=== PATIENT | male | born 1990 | race Hispanic/Latino ===

== ENCOUNTER 2016-12-27 19:25 | Emergency (ER) | payer MEDICAID ==
[2016-12-27 20:11] VITALS: BP 136/84
[2016-12-27] MEDS ORDERED: TYLENOL PO ONE (20:11)
[2016-12-27] MEDS ORDERED: TYLENOL ONE (20:11)
== END 2016-12-27 23:35 | disposition left against medical advice (07) ==
LOC: ED 19:25
DX: R22.0 Localized swelling, mass and lump, head (principal); K08.89 Other specified disorders of teeth and supporting structures; R50.9 Fever, unspecified; J45.909 Unspecified asthma, uncomplicated; E11.9 Type 2 diabetes mellitus without complications; F31.9 Bipolar disorder, unspecified; F20.9 Schizophrenia, unspecified; Z53.21 Procedure and treatment not carried out due to patient leaving prior to being seen by health care provider

== ENCOUNTER 2016-12-30 11:53 | Emergency (ER) | payer MEDICAID ==
[2016-12-30 12:25] VITALS: BP 128/84
--- NOTE | 2016-12-30 13:09 | Emergency Department Report ---
HPI - General Chief Complaint: Dental/Oral Time Seen by Provider: 12/30/16 13:06 - HPI HPI: Patient here reports left facial swelling in that been going on and off for a while. He said that he went to [facility] but he has Medicaid and they would not take because these over 21. Patient said he has toothache with abscess that is being going on for 1 week now. He reports swelling to his cheek. Denies any fever or chills. He said the pain is coming from his gum and it comes and goes at 2 out of 10 presently. Denies any sore throat or drooling. Denies any cough or difficulty breathing. She has a history of schizophrenia, bipolar and behavioral disorder, diabetes, asthma. ED Past Medical Hx - Past Medical History Previous Medical History?: Yes Hx Diabetes: Yes Hx Psychiatric Treatment: Yes (schizophrenia, bipolar) Hx Asthma: Yes Additional medical history: behavioral disorder - Surgical History Past Surgical History?: Yes Hx Cholecystectomy: Yes - Family History Family history: no significant - Social History Smoking Status: Never Smoker Substance Use Type: None - Medications Home Medications: Home Medications Medication Instructions Recorded Confirmed Last Taken Type Albuterol Sulfate [Ventolin HFA] 2 puff IH Q4H PRN #2 hfa.aer.ad 11/26/13 Unknown Rx predniSONE [Deltasone] 20 mg PO TID #15 tab 11/26/13 Unknown Rx Clindamycin [Clindamycin CAP] 300 mg PO Q8H #30 cap 12/30/16 Unknown Rx Ibuprofen [Motrin 800 MG tab] 800 mg PO Q8HR PRN #21 tablet 12/30/16 Unknown Rx ED Review of Systems ROS: Stated complaint: MOUTH INFECTION Other details as noted in HPI Comment: All other systems reviewed and negative Constitutional: denies: chills, fever Eyes: denies: eye pain, vision change ENT: dental pain. denies: ear pain, throat pain, hearing loss, epistaxis, congestion Respiratory: no symptoms reported Cardiovascular: denies: chest pain, palpitations, edema, syncope Gastrointestinal: denies: abdominal pain, nausea, vomiting Musculoskeletal: denies: back pain, joint swelling, arthralgia, myalgia Skin: denies: rash Neurological: denies: headache, weakness, numbness, paresthesias, confusion, abnormal gait, vertigo Physical Exam - Physical Exam Vital Signs: Vital Signs 12/30/16 12:23 Temperature 97.9 F Pulse Rate 86 Respiratory 16 Rate Blood Pressure 128/84 O2 Sat by Pulse 98 Oximetry General: This is a 26-year-old male well-nourished well-developed in no acute distress. Physical Exam: Head: [Normocephalic atraumatic Mouth: Moist, no pharyngeal exudate or erythema. Uvula is midline and oral airway is patent. gingival inflammation de with dental tenderness to left lower and upper tooth.#15 16,17,18 and 19. positive facial left swelling . No peritonsillar abscesses. Multiple missing teeth. Multiple dental caries. Mild cellulitis around tooth #15,16 and 17. No induration or fluctuance noted Neck: Supple, no C-spine tenderness, no tracheal deviation. Nontender to palpate. no adenopathy Ears: Bilateral TMs Pear[place] carbone .bilateral EAC without any redness swelling or drainage Eyes: Bilateral pupils equal and reactive to light, bilateral EOM intact. Bilateral sclera and conjunctiva without injection. Normal accommodation Nose: Mucosa moist, NL mucosa. maxillary and frontal sinus non-tender to palpate. Lungs:Clear to auscultate bilaterally no rhonchi wheezes or rales. Normal work of breathing extremity; No CCE. +2 pulses. No neurovascular compromise Cardiovascular: S1-S2, regular rate rhythm. No murmurs. Skin: clean Dry and intact no rash no lesions Psych: Normal mood and behavior ED Course Vital Signs 12/30/16 12:23 Temperature 97.9 F Pulse Rate 86 Respiratory 16 Rate Blood Pressure 128/84 O2 Sat by Pulse 98 Oximetry - Reevaluation(s) Reevaluation #1: 12/30/16 13:18 Patient did not want any pain medication in the emergency room. ED Medical Decision Making - Medical Decision Making ED course: Patient with oral cellulitis, gingivitis and dental pain. I discussed the patient diagnosis and treatment plan and need to follow-up with a dentist for correction of underlying problems. He voices understanding and patient discharged home in stable condition with prescription for Motrin, clindamycin and to follow up with [facility] dental clinic. Critical care attestation.: If time is entered above; I have spent that time in minutes in the direct care of this critically ill patient, excluding procedure time. ED Disposition Clinical Impression: Mouth pain, Gingivitis, Dental caries, Oral cellulitis Disposition: DC-01 TO HOME OR SELFCARE Is pt being admited?: No Does the pt Need Aspirin: No Condition: Stable Instructions: Cellulitis (ED), Dental Caries (ED), Toothache (ED), Gingivitis ( ED) Additional Instructions: Please rinse your mouth 2 times a day with Listerine mouthwash Follow up with [facility] dental clinic. Call number in discharge instruction paperwork to get appointment. Take antibiotic as prescribed. Prescriptions: Clindamycin [Clindamycin CAP] 300 mg PO Q8H #30 cap Ibuprofen [Motrin 800 MG tab] 800 mg PO Q8HR PRN #21 tablet PRN Reason: Toothache Referrals: [facility] [Outside] - 3-5 Days Forms: Accompanied Note, Work/School Release Form(ED)
== END 2016-12-30 13:43 | disposition home or self-care (01) ==
LOC: ED 11:53
DX: K12.2 Cellulitis and abscess of mouth (principal); K02.9 Dental caries, unspecified; K05.10 Chronic gingivitis, plaque induced; E11.9 Type 2 diabetes mellitus without complications; F31.9 Bipolar disorder, unspecified; F20.9 Schizophrenia, unspecified; J45.909 Unspecified asthma, uncomplicated; Z90.49 Acquired absence of other specified parts of digestive tract
CPT/HCPCS: 99281

== ENCOUNTER 2019-04-06 13:03 | Emergency (ER) | payer MEDICAID ==
[2019-04-06 13:46] VITALS: BP 121/80
[2019-04-06 15:05] LABS: Basophils # (Auto) 0.1 K/mm3 (0.0-0.1); Basophils % (Auto) 0.6 % (0.0-1.8); Eosinophils # (Auto) 0.3 K/mm3 (0.0-0.4); Eosinophils % (Auto) 2.9 % (0.0-4.3); Hematocrit 46.8 % (35.5-45.6); Hemoglobin 16.2 gm/dl (11.8-15.2); Lymphocytes # (Auto) 1.6 K/mm3 (1.2-5.4); Lymphocytes % (Auto) 16.4 % (13.4-35.0); Mean Corpuscular HGB Conc 35 % (32-34); Mean Corpuscular Volume 85 fl (84-94); Monocytes # (Auto) 0.5 K/mm3 (0.0-0.8); Monocytes % (Auto) 5.4 % (0.0-7.3); Platelet Count 301 K/mm3 (140-440); Red Blood Count 5.52 M/mm3 (3.65-5.03); Red Cell Distribution Width 13.8 % (13.2-15.2)
[2019-04-06 15:15] LABS: Alanine Aminotransferase 86 units/L (7-56); Albumin 4.6 g/dL (3.9-5); BUN/Creatinine Ratio 23; Blood Urea Nitrogen 25 mg/dL (9-20); Calcium 9.5 mg/dL (8.4-10.2); Hemolysis Index 12
[2019-04-06 16:13] LABS: Bilirubin,Urine NEG (Negative); Blood,Urine NEG (Negative); Color,Urine Amber (Yellow); Mucus,Urine 1+ /HPF; Protein,Urine <15 mg/dL mg/dL (Negative)
[2019-04-06] MEDS ORDERED: CATAPRES PO ONE (16:14)
--- NOTE | 2019-04-06 16:15 | Emergency Department Report ---
ED Syncope HPI - General Chief Complaint: Syncope Stated Complaint: HBP/FAINTED Time Seen by Provider: 04/06/19 14:47 Source: patient Exam Limitations: no limitations - History of Present Illness Initial Comments: This is 28-year-old male with past medical history behavior disorder and bipolar disorder who presents to ED status post syncopal episode that happened earlier today while he was in his room. Patient states he was sitting on the bed when he had a syncopal episode. Patient states his head did not hit the floor patient denies loss of consciousness. Patient states he thinks his couple of seconds. Patient denies any chest pain or dizziness or any symptoms prior to syncopal episode. Patient states that he's been out of these medications. She denies fevers/chills/nausea and vomited Timing/Prior Episodes: single episode today Precipitating Factors: Positive: none Context: sitting Loss of Consciousness: no loss of consciousness Current Symptoms: back to normal. denies: blurred vision, chest pain, injury, lightheadedness - Related Data Allergies/Adverse Reactions: Allergies No Known Allergies Allergy (Verified 04/06/19 13:10) Home Medications: Ambulatory Orders Albuterol Sulfate [Ventolin HFA] 2 puff IH Q4H PRN #2 hfa.aer.ad 11/26/13 predniSONE [Deltasone] 20 mg PO TID #15 tab 11/26/13 Clindamycin [Clindamycin CAP] 300 mg PO Q8H #30 cap 12/30/16 Ibuprofen [Motrin 800 MG tab] 800 mg PO Q8HR PRN #21 tablet 12/30/16 cloZAPine (NF) 100 mg PO QHS #20 tablet 04/06/19 diphenhydrAMINE [Benadryl CAP] 25 mg PO QHS #20 capsule 04/06/19 ED Review of Systems ROS: Stated complaint: HBP/FAINTED Other details as noted in HPI Comment: All other systems reviewed and negative ED Past Medical Hx - Past Medical History Previous Medical History?: Yes Hx Diabetes: Yes Hx Psychiatric Treatment: Yes (schizophrenia, bipolar) Hx Asthma: Yes Additional medical history: behavioral disorder - Surgical History Past Surgical History?: Yes Hx Cholecystectomy: Yes - Social History Smoking Status: Never Smoker Substance Use Type: None - Medications Home Medications: Home Medications Medication Instructions Recorded Confirmed Last Taken Type Albuterol Sulfate [Ventolin HFA] 2 puff IH Q4H PRN #2 hfa.aer.ad 11/26/13 Unknown Rx predniSONE [Deltasone] 20 mg PO TID #15 tab 11/26/13 Unknown Rx Clindamycin [Clindamycin CAP] 300 mg PO Q8H #30 cap 12/30/16 Unknown Rx Ibuprofen [Motrin 800 MG tab] 800 mg PO Q8HR PRN #21 tablet 12/30/16 Unknown Rx cloZAPine (NF) 100 mg PO QHS #20 tablet 04/06/19 Unknown Rx diphenhydrAMINE [Benadryl CAP] 25 mg PO QHS #20 capsule 04/06/19 Unknown Rx ED Physical Exam - General Limitations: No Limitations General appearance: alert, in no apparent distress - Head Head exam: Present: atraumatic, normocephalic - Eye Eye exam: Present: normal appearance - ENT ENT exam: Present: mucous membranes moist - Neck Neck exam: Present: normal inspection - Respiratory Respiratory exam: Present: normal lung sounds bilaterally. Absent: respiratory distress - Cardiovascular Cardiovascular Exam: Present: regular rate, normal rhythm. Absent: systolic murmur, diastolic murmur, rubs, gallop - GI/Abdominal GI/Abdominal exam: Present: soft, normal bowel sounds - Rectal Rectal exam: Present: deferred - Extremities Exam Extremities exam: Present: normal inspection - Back Exam Back exam: Present: normal inspection - Neurological Exam Neurological exam: Present: alert, oriented X3, CN II-XII intact, normal gait - Expanded Neurological Exam Expanded Patient oriented to: Present: person, place, time Speech: Present: fluid speech Cerebellar function: Finger to Nose: Normal Best Eye Response (Erving): (4) open spontaneously Best Motor Response (Erving): (6) obeys commands Best Verbal Response (Elías): (5) oriented Erving Total: 15 - Psychiatric Psychiatric exam: Present: normal affect, normal mood - Skin Skin exam: Present: warm, dry, intact, normal color. Absent: rash ED Course Vital Signs 04/06/19 13:45 Temperature 97.9 F Pulse Rate 86 Respiratory 16 Rate Blood Pressure 121/80 O2 Sat by Pulse 94 Oximetry ED Medical Decision Making - Lab Data Result diagrams: 04/06/19 14:31 04/06/19 14:31 Laboratory Last Values WBC 10.0 K/mm3 (4.5-11.0) 04/06/19 14:31 RBC 5.52 M/mm3 (3.65-5.03) H 04/06/19 14:31 Hgb 16.2 gm/dl (11.8-15.2) H 04/06/19 14:31 Hct 46.8 % (35.5-45.6) H 04/06/19 14:31 MCV 85 fl (84-94) 04/06/19 14:31 MCH 29 pg (28-32) 04/06/19 14:31 MCHC 35 % (32-34) H 04/06/19 14:31 RDW 13.8 % (13.2-15.2) 04/06/19 14:31 Plt Count 301 K/mm3 (140-440) 04/06/19 14:31 Lymph % (Auto) 16.4 % (13.4-35.0) 04/06/19 14:31 [place] % (Auto) 5.4 % (0.0-7.3) 04/06/19 14:31 Eos % (Auto) 2.9 % (0.0-4.3) 04/06/19 14:31 Baso % (Auto) 0.6 % (0.0-1.8) 04/06/19 14:31 Lymph # 1.6 K/mm3 (1.2-5.4) 04/06/19 14:31 [place] # 0.5 K/mm3 (0.0-0.8) 04/06/19 14:31 Eos # 0.3 K/mm3 (0.0-0.4) 04/06/19 14:31 Baso # 0.1 K/mm3 (0.0-0.1) 04/06/19 14:31 Seg Neutrophils % 74.7 % (40.0-70.0) H 04/06/19 14:31 Seg Neutrophils # 7.5 K/mm3 (1.8-7.7) 04/06/19 14:31 Sodium 139 mmol/L (137-145) 04/06/19 14:31 Potassium 3.8 mmol/L (3.6-5.0) 04/06/19 14:31 Chloride 103.9 mmol/L (98-107) 04/06/19 14:31 Carbon Dioxide 19 mmol/L (22-30) L 04/06/19 14:31 Anion Gap 20 mmol/L 04/06/19 14:31 BUN 25 mg/dL (9-20) H 04/06/19 14:31 Creatinine 1.1 mg/dL (0.8-1.5) 04/06/19 14:31 Estimated GFR > 60 ml/min 04/06/19 14:31 BUN/Creatinine Ratio 23 % 04/06/19 14:31 Glucose 95 mg/dL (75-100) 04/06/19 14:31 Calcium 9.5 mg/dL (8.4-10.2) 04/06/19 14:31 Total Bilirubin 0.90 mg/dL (0.1-1.2) 04/06/19 14:31 AST 44 units/L (5-40) H 04/06/19 14:31 ALT 86 units/L (7-56) H 04/06/19 14:31 Alkaline Phosphatase 93 units/L (35-129) 04/06/19 14:31 Total Protein 8.4 g/dL (6.3-8.2) H 04/06/19 14:31 Albumin 4.6 g/dL (3.9-5) 04/06/19 14:31 Albumin/Globulin Ratio 1.2 % 04/06/19 14:31 Urine Bilirubin Neg (Negative) 04/06/19 Unknown Urine RBC (Auto) 2.0 /HPF (0.0-6.0) 04/06/19 Unknown U Epithel Cells (Auto) < 1.0 /HPF (0-13.0) 04/06/19 Unknown Temp Pulse Resp BP Pulse Ox 97.9 F 86 16 121/80 94 04/06/19 13:45 04/06/19 13:45 04/06/19 13:45 04/06/19 13:45 04/06/19 13:45 - EKG Data EKG shows normal: sinus rhythm Rate: normal - EKG Data Interpretation: no acute changes, normal EKG - Medical Decision Making 28-year-old male presents with syncopal episode. ED course: Patient is in no acute or respiratory distress. Vital signs stable. Patient reports feeling better and is in no pain. CBC: Within normal limits CMP:within normal limits Urinalysis: Negative EKG: See above, normal sinus rhythm Discussed with patient lab findings -see above Patient is a low risk due to [place] syncopy rule. Patient has no history of congestive heart failure, hematocrit greater than 30, EKG within normal limits, denies shortness of breath and systolic pressure greater than 90. Orthostatic blood pressure: Normal Patient states she understands and will comply to follow-up. Primary care physician, mental health physician referral given Discussed with patient if she has some nonspecific episodes return to ED. Critical care attestation.: If time is entered above; I have spent that time in minutes in the direct care of this critically ill patient, excluding procedure time. ED Disposition Clinical Impression: Episode of syncope Disposition: DC- TO HOME OR SELFCARE Is pt being admited?: No Does the pt Need Aspirin: No Condition: Stable Instructions: Syncope (ED) Additional Instructions: Make sure to follow up with the primary care physician as discussed. Take all your medications as you've been prescribed. If you have any worsening symptoms or develop new symptoms please return to ED immediately. Prescriptions: diphenhydrAMINE [Benadryl CAP] 25 mg PO QHS #20 capsule cloZAPine (NF) 100 mg PO QHS #20 tablet Referrals: PRIMARY CARE, [Primary Care Provider] - 3-5 Days [facility] [Outside] - 3-5 Days [facility] [Outside] - 3-5 Days [facility] [Outside] - 3-5 Days Forms: Accompanied Note, Work/School Release Form(ED) Time of Disposition: 17:25
== END 2019-04-06 17:34 | disposition home or self-care (01) ==
LOC: ED 13:03
DX: R55 Syncope and collapse (principal); E11.9 Type 2 diabetes mellitus without complications; F31.9 Bipolar disorder, unspecified; F20.9 Schizophrenia, unspecified; J45.909 Unspecified asthma, uncomplicated; Z90.49 Acquired absence of other specified parts of digestive tract; Z79.899 Other long term (current) drug therapy
CPT/HCPCS: 36415; 80053; 81001; 85025; 93005; 93010

== ENCOUNTER 2019-05-06 05:25 | Emergency (ER) | payer MEDICAID ==
[2019-05-06] MEDS ORDERED: ONDANSETRON 4 MG/2 ML INJ IV ONE (05:38)
[2019-05-06] MEDS ORDERED: KETOROLAC 30 MG/1 ML INJ IV ONE (05:38)
[2019-05-06] MEDS ORDERED: FAMOTIDINE 20 MG/2 ML INJ IV ONE (05:38)
--- NOTE | 2019-05-06 05:44 | Emergency Department Report ---
<RALPH SIMPSON - Last Filed: 05/06/19 07:10> ED Abdominal Pain HPI - General Chief Complaint: Abdominal Pain Stated Complaint: ABD PAIN Source: patient Mode of arrival: Ambulatory Limitations: No Limitations - History of Present Illness Initial Comments: Patient is a 28-year-old white male with a history of asthma, [id number] diabetes, hypertension, paranoid schizophrenia and bipolar disorder who presents to the ED with [place] of acute onset persistent diffuse intermittent abdominal pain with nausea for the last 3 weeks. Patient states t hat his symptoms got worse about 6 hours ago such that he was unable to sleep because of worsening diffuse abdominal pain. Patient also states that he has not had any bowel movement in 5 days despite eating. Patient denies vomiting, fever, chills, cough, chest pain, shortness of breath, soft, headache, dizziness, diarrhea, dysuria, urinary frequency and urgency, testicular pain, hematuria, hematochezia or hematemesis. MD Complaint: abdominal pain, other (Possibly constipated; Nausea) -: Sudden, week(s) (3) Location: diffuse Radiation: none Migration to: no migration Severity scale (0 -10): 5 Quality: cramping, aching, sharp Consistency: constant Improves With: nothing Worsens With: nothing Context: other (possibly constipated, no bowel movement in 5 days) Associated Symptoms: denies other symptoms, nausea, constipation. denies: vomiting, diarrhea, fever, dysuria, hematemesis, hematochezia, hematuria, syncope, other - Related Data Previous Rx's Medication Instructions Recorded Last Taken Type Albuterol Sulfate [Ventolin HFA] 2 puff IH Q4H PRN #2 hfa.aer.ad 11/26/13 Unknown Rx predniSONE [Deltasone] 20 mg PO TID #15 tab 11/26/13 Unknown Rx Clindamycin [Clindamycin CAP] 300 mg PO Q8H #30 cap 12/30/16 Unknown Rx Ibuprofen [Motrin 800 MG tab] 800 mg PO Q8HR PRN #21 tablet 12/30/16 Unknown Rx cloZAPine (NF) 100 mg PO QHS #20 tablet 04/06/19 Unknown Rx diphenhydrAMINE [Benadryl CAP] 25 mg PO QHS #20 capsule 04/06/19 Unknown Rx Ondansetron [Zofran ODT TAB] 8 mg PO Q12HR #20 tab.rapdis 05/06/19 Unknown Rx Polyethylene Glycol 3350 [Miralax] 17 gm PO DAILY 7 Days #1 bottle 05/06/19 Unknown Rx Allergies Allergy/AdvReac Type Severity Reaction Status Date / Time No Known Allergies Allergy Verified 04/06/19 13:10 ED Review of Systems Constitutional: malaise, weakness. denies: chills, fever Eyes: denies: eye pain, eye discharge, vision change ENT: denies: ear pain, throat pain Respiratory: denies: cough, shortness of breath, wheezing Cardiovascular: denies: chest pain, palpitations Endocrine: no symptoms reported Gastrointestinal: abdominal pain, nausea, constipation. denies: diarrhea, hematemesis, hematochezia Genitourinary: denies: urgency, dysuria Musculoskeletal: denies: back pain, joint swelling, arthralgia Skin: denies: rash, lesions Neurological: denies: headache, weakness, paresthesias Psychiatric: denies: anxiety, depression Hematological/Lymphatic: denies: easy bleeding, easy bruising ED Past Medical Hx - Past Medical History Previous Medical History?: Yes Hx Hypertension: Yes Hx Diabetes: Yes Hx Psychiatric Treatment: Yes (schizophrenia, bipolar) Hx Asthma: Yes Additional medical history: behavioral disorder - Surgical History Past Surgical History?: Yes Hx Cholecystectomy: Yes - Social History Smoking Status: Never Smoker Substance Use Type: None - Medications Home Medications: Home Medications Medication Instructions Recorded Confirmed Last Taken Type Albuterol Sulfate [Ventolin HFA] 2 puff IH Q4H PRN #2 hfa.aer.ad 11/26/13 Unkno wn Rx predniSONE [Deltasone] 20 mg PO TID #15 tab 11/26/13 Unknown Rx Clindamycin [Clindamycin CAP] 300 mg PO Q8H #30 cap 12/30/16 Unknown Rx Ibuprofen [Motrin 800 MG tab] 800 mg PO Q8HR PRN #21 tablet 12/30/16 Unknown Rx cloZAPine (NF) 100 mg PO QHS #20 tablet 04/06/19 Unknown Rx diphenhydrAMINE [Benadryl CAP] 25 mg PO QHS #20 capsule 04/06/19 Unknown Rx Ondansetron [Zofran ODT TAB] 8 mg PO Q12HR #20 tab.rapdis 05/06/19 Unknown Rx Polyethylene Glycol 3350 [Miralax] 17 gm PO DAILY 7 Days #1 bottle 05/06/19 Unknown Rx ED Physical Exam - General Limitations: No Limitations General appearance: alert, in no apparent distress - Head Head exam: Present: atraumatic, normocephalic, normal inspection - Eye Eye exam: Present: normal appearance, PERRL, EOMI Pupils: Present: normal accommodation - ENT ENT exam: Present: normal exam, normal orophraynx, mucous membranes moist, TM's normal bilaterally, normal external ear exam - Neck Neck exam: Present: normal inspection, full ROM - Respiratory Respiratory exam: Present: normal lung sounds bilaterally. Absent: respiratory distress, wheezes, rales, rhonchi, chest wall tenderness, accessory muscle use, decreased breath sounds - Cardiovascular Cardiovascular Exam: Present: regular rate, normal rhythm, normal heart sounds. Absent: systolic murmur, diastolic murmur, rubs, gallop - GI/Abdominal GI/Abdominal exam: Present: soft, tenderness (Palpable diffuse abdominal tenderness, no guarding or rebound), normal bowel sounds. Absent: guarding, rebound, hyperactive bowel sounds, hypoactive bowel sounds, organomegaly - Extremities Exam Extremities exam: Present: normal inspection, full ROM, normal capillary refill - Back Exam Back exam: Present: normal inspection, full ROM. Absent: tenderness, CVA tenderness (L), muscle spasm, paraspinal tenderness, vertebral tenderness - Neurological Exam Neurological exam: Present: alert, oriented X3, CN II-XII intact, normal gait, reflexes normal - Psychiatric Psychiatric exam: Present: normal affect, normal mood, anxious - Skin Skin exam: Present: warm, dry, intact, normal color. Absent: rash ED Medical Decision Making - Lab Data Result diagrams: 05/06/19 05:40 05/06/19 05:40 - Medical Decision Making Patient patient care transferred to Ms Misti Tejeda PA-C at shift change at 0700 hours. Ms Servin shall review the imaging report and appropriately disposition the patient. - Differential Diagnosis Abdominal pain; Constipation, SBO; UTI; GERD ED Disposition Clinical Impression: Constipation, Enteritis, IBS (irritable bowel syndrome) Disposition: DC- TO HOME OR SELFCARE Condition: Stable Instructions: High Fiber Diet (ED), Constipation (ED) Additional Instructions: Make sure to follow up with the primary care physician as discussed. Take all your medications as you've been prescribed. If you have any worsening symptoms or develop new symptoms please return to ED immediately. Prescriptions: Polyethylene Glycol 3350 [Miralax] 17 gm PO DAILY 7 Days #1 bottle Ondansetron [Zofran ODT TAB] 8 mg PO Q12HR #20 tab.rapdis Referrals: PRIMARY CARE, [Primary Care Provider] - 3-5 Days [facility] [Provider Group] - 3-5 Days [facility] [Provider Group] - 3-5 Days Forms: Accompanied Note, Work/School Release Form(ED) <MISTI TEJEDA - Last Filed: 05/06/19 09:27> ED Review of Systems ROS: Stated complaint: ABD PAIN Other details as noted in HPI ED Course Vital Signs 05/06/19 05:30 Temperature 97.7 F Pulse Rate 89 Respiratory 18 Rate Blood Pressure 133/97 O2 Sat by Pulse 97 Oximetry ED Medical Decision Making - Lab Data Result diagrams: 05/06/19 05:40 05/06/19 05:40 Laboratory Results - last 24 hr 05/06/19 05/06/19 05/06/19 05:35 05:40 05:40 WBC 7.1 RBC 4.59 Hgb 13.8 Hct 39.2 MCV 86 MCH 30 MCHC 35 H RDW 14.5 Plt Count 310 Lymph % (Auto) 28.1 [place] % (Auto) 7.9 H Eos % (Auto) 5.7 H Baso % (Auto) 0.8 Lymph # 2.0 [place] # 0.6 Eos # 0.4 Baso # 0.1 Seg Neutrophils % 57.5 Seg Neutrophils # 4.1 Sodium 145 Potassium 3.6 Chloride 104.8 Carbon Dioxide 27 Anion Gap 17 BUN 16 Creatinine 1.1 Estimated GFR > 60 BUN/Creatinine Ratio 15 Glucose 111 H Calcium 9.4 Total Bilirubin 0.40 AST 33 ALT 70 H Alkaline Phosphatase 78 Total Protein 7.2 Albumin 4.2 Albumin/Globulin Ratio 1.4 Lipase 56 Urine Color Gisselle Urine Turbidity Clear Urine pH 5.0 Ur Specific [place] 1.028 Urine Protein 30 mg/dl Urine Glucose (UA) Neg Urine Ketones Neg Urine Blood Neg Urine Nitrite Neg Urine Bilirubin Neg Urine Urobilinogen 2.0 Ur Leukocyte Esterase Neg Urine WBC (Auto) 4.0 Urine RBC (Auto) 3.0 U Epithel Cells (Auto) < 1.0 Urine Bacteria (Auto) 1+ Urine Mucus 3+ - Radiology Data Radiology results: report reviewed, image reviewed CT abdomen pelvis w con INDICATION / CLINICAL INFORMATION: Patient complains of epigastric abdominal pain Omnipaque 300 / 100ml's was used for this exam.. TECHNIQUE: Axial CT imaging of abdomen and pelvis was obtained with IV contrast. Coronal and sagittal reformatted imaging obtained and reviewed. All CT scans at this location are performed using CT dose reduction for ALARA by means of automated exposure control. COMPARISON: Prior CT abdomen/pelvis, 09/11/2011 FINDINGS: CT abdomen with contrast shows normal appearance of the liver, spleen, pancreas, kidneys, and adrenal glands. Prior cholecystectomy. There is marked elevation of the left hemidiaphragm. CT pelvis with contrast shows no evidence for a pelvic mass or free fluid. No focal inflammatory change. A normal appendix is present. There are several nondilated fluid-filled loops of small bowel throughout the pelvis in a pattern that could represent enteritis. This will need to be correlated with clinical presentation and symptoms. Visualized lung bases are grossly clear. Again, there is marked elevation of the left hemidiaphragm. No significant skeletal abnormality IMPRESSION: 1. Multiple nondilated fluid filled small bowel loops are present. This could represent enteritis. Please correlate clinically. 2. No other acute finding within the abdomen or pelvis. 3. Marked elevation of the left hemidiaphragm. On the prior CT of 09/11/2011, the left hemidiaphragm was slightly elevated. The degree of elevation on today's exam represents a significant interval change. Signer Name: Yarely Stout MD Signed: 05/06/2019 7:33 AM Workstation Name: [id number] Transcribed By: Dictated By: Yarely Stout MD Electronically Authenticated By: Yarely Stout MD Signed Date/Time: 05/06/19 0733 - Medical Decision Making This is a 28-year-old male who presents with constipation and some abdominal pain. CBC, CMP, urinalysis all within normal limits no abnormal findings CT scan of the abdomen itself that shows no acute abdomen. Upon reevaluation patient is nontender in the abdomen in all quadrants. Patient states he had a bowel movement 30 minutes ago in the emergency department. Patient states he was a normal bowel movement. Patient is resting comfortably ED bed. He is in no acute distress. Discussed with patient referrals given for a fishing vessel captain to follow-up. Patient is not exhibiting any signs of shortness of breath or chest pain She will be sent tomorrow MiraLAX for 7 days then Zofran as needed for nausea There is no active vomiting or diarrhea episode in the ED. Patient was asking for food stating he was hungry and was able to tolerate fluid prior to discharge Critical care attestation.: If time is entered above; I have spent that time in minutes in the direct care of this critically ill patient, excluding procedure time. ED Disposition Is pt being admited?: No Does the pt Need Aspirin: No Time of Disposition: 09:24
[2019-05-06] MEDS: MAGNESIUM CITRATE 300 ML ORAL LIQD PO ONE ×2 (06:05→06:41)
[2019-05-06 06:08] LABS: Basophils # (Auto) 0.1 K/mm3 (0.0-0.1); Basophils % (Auto) 0.8 % (0.0-1.8); Eosinophils # (Auto) 0.4 K/mm3 (0.0-0.4); Eosinophils % (Auto) 5.7 % (0.0-4.3); Hematocrit 39.2 % (35.5-45.6); Hemoglobin 13.8 gm/dl (11.8-15.2); Lymphocytes % (Auto) 28.1 % (13.4-35.0); Mean Corpuscular HGB Conc 35 % (32-34); Mean Corpuscular Volume 86 fl (84-94); Monocytes # (Auto) 0.6 K/mm3 (0.0-0.8); Monocytes % (Auto) 7.9 % (0.0-7.3); Platelet Count 310 K/mm3 (140-440); Red Blood Count 4.59 M/mm3 (3.65-5.03); Red Cell Distribution Width 14.5 % (13.2-15.2)
[2019-05-06 06:20] LABS: Bacteria,Urine 1+ /HPF (Negative); Bilirubin,Urine NEG (Negative); Blood,Urine NEG (Negative); Color,Urine Amber (Yellow); Mucus,Urine 3+ /HPF
[2019-05-06] MEDS ORDERED: POLYETHYLENE GLYCOL 3350 17 GM POWDER PO ONE (06:23)
[2019-05-06 06:31] LABS: Alanine Aminotransferase 70 units/L (7-56); Albumin 4.2 g/dL (3.9-5); BUN/Creatinine Ratio 15; Blood Urea Nitrogen 16 mg/dL (9-20); Calcium 9.4 mg/dL (8.4-10.2); Hemolysis Index 17
--- NOTE | 2019-05-06 07:38 | Cat Scan Report ---
CT abdomen pelvis w con INDICATION / CLINICAL INFORMATION: Patient complains of epigastric abdominal pain Omnipaque 300 / 100ml's was used for this exam.. TECHNIQUE: Axial CT imaging of abdomen and pelvis was obtained with IV contrast. Coronal and sagittal reformatte d imaging obtained and reviewed. All CT scans at this location are performed using CT dose reduction for ALARA by means of automated exposure control. COMPARISON: Prior CT abdomen/pelvis, 09/11/2011 FINDINGS: CT abdomen with contrast shows normal appearance of the liver, spleen, pancreas, kidneys, and adrenal glands. Prior cholecystectomy. There is marked elevation of the left hemidiaphragm. CT pelvis with contrast shows no evidence for a pelvic mass or free fluid. No focal inflammatory [place] ge. A normal appendix is present. There are several nondilated fluid-filled loops of small bowel thro ughout the pelvis in a pattern that could represent enteritis. This will need to be correlated with c linical presentation and symptoms. Visualized lung bases are grossly clear. Again, there is marked elevation of the left hemidiaphragm. No significant skeletal abnormality IMPRESSION: 1. Multiple nondilated fluid filled small bowel loops are present. This could represent enteritis. Pl ease correlate clinically. 2. No other acute finding within the abdomen or pelvis. 3. Marked elevation of the left hemidiaphragm. On the prior CT of 09/11/2011, the left hemidiaphragm was slightly elevated. The degree of elevation on today's exam represents a significant interval luigi nge. Signer Name: Yarely Stout MD Signed: 05/06/2019 7:33 AM Workstation Name: [id number]
[2019-05-06 09:46] VITALS: BP 130/91
== END 2019-05-06 09:44 | disposition home or self-care (01) ==
LOC: ED 05:25
DX: K52.9 Noninfective gastroenteritis and colitis, unspecified (principal); I10 Essential (primary) hypertension; E11.9 Type 2 diabetes mellitus without complications; F20.9 Schizophrenia, unspecified; F31.9 Bipolar disorder, unspecified; J45.909 Unspecified asthma, uncomplicated; Z79.899 Other long term (current) drug therapy; Z79.1 Long term (current) use of non-steroidal anti-inflammatories (NSAID); Z90.49 Acquired absence of other specified parts of digestive tract
CPT/HCPCS: 36415; 74177; 80053; 81001; 83690; 85025; 96374; 96375; 99284; J1885; J2405; Q9967

== ENCOUNTER 2019-05-20 01:25 | Emergency (ER) | payer MEDICAID ==
[2019-05-20] MEDS ORDERED: oxyCODONE /ACETAMINOPHEN 5-325MG TAB PO STA (03:26)
--- NOTE | 2019-05-20 03:38 | Emergency Department Report ---
ED Head Trauma HPI - General Chief complaint: Dyspnea/Respdistress Stated complaint: LEFT SIDE FACIAL PAIN, DIFFICULTY BREATHING Time Seen by Provider: 05/20/19 03:06 Source: patient Mode of arrival: Ambulatory Limitations: No Limitations - History of Present Illness MD Complaint: head injury, head pain -: Sudden, days(s) (2) Mechanism of Injury: other (accidentally struck her face with bathroom door) Loss of Consciousness: unsure Previous Trauma to this Area: No Place: home Provoking factors: none known Other Injuries: none Associated Symptoms: denies: nausea, weakness, tingling, neck pain - Related Data Previous Rx's Medication Instructions Recorded Last Taken Type Albuterol Sulfate [Ventolin HFA] 2 puff IH Q4H PRN #2 hfa.aer.ad 11/26/13 Unknown Rx predniSONE [Deltasone] 20 mg PO TID #15 tab 11/26/13 Unknown Rx Clindamycin [Clindamycin CAP] 300 mg PO Q8H #30 cap 12/30/16 Unknown Rx Ibuprofen [Motrin 800 MG tab] 800 mg PO Q8HR PRN #21 tablet 12/30/16 Unknown Rx cloZAPine (NF) 100 mg PO QHS #20 tablet 04/06/19 Unknown Rx diphenhydrAMINE [Benadryl CAP] 25 mg PO QHS #20 capsule 04/06/19 Unknown Rx Ondansetron [Zofran ODT TAB] 8 mg PO Q12HR #20 tab.rapdis 05/06/19 Unknown Rx Polyethylene Glycol 3350 [Miralax] 17 gm PO DAILY 7 Days #1 bottle 05/06/19 Unknown Rx Ketorolac [Toradol] 10 mg PO Q6H PRN #10 tablet 05/20/19 Unknown Rx Allergies/Adverse reactions: Allergies Allergy/AdvReac Type Severity Reaction Status Date / Time No Known Allergies Allergy Verified 04/06/19 13:10 ED Review of Systems ROS: Stated complaint: LEFT SIDE FACIAL PAIN, DIFFICULTY BREATHING Other details as noted in HPI Comment: All other systems reviewed and negative ED Past Medical Hx - Past Medical History Previous Medical History?: Yes Hx Hypertension: Yes Hx Diabetes: Yes Hx Psychiatric Treatment: Yes (schizophrenia, bipolar) Hx Asthma: Yes Additional medical history: behavioral disorder - Surgical History Past Surgical History?: Yes Hx Cholecystectomy: Yes - Social History Smoking Status: Never Smoker Substance Use Type: None - Medications Home Medications: Home Medications Medication Instructions Recorded Confirmed Last Taken Type Albuterol Sulfate [Ventolin HFA] 2 puff IH Q4H PRN #2 hfa.aer.ad 11/26/13 Unknown Rx predniSONE [Deltasone] 20 mg PO TID #15 tab 11/26/13 Unknown Rx Clindamycin [Clindamycin CAP] 300 mg PO Q8H #30 cap 12/30/16 Unknown Rx Ibuprofen [Motrin 800 MG tab] 800 mg PO Q8HR PRN #21 tablet 12/30/16 Unknown Rx cloZAPine (NF) 100 mg PO QHS #20 tablet 04/06/19 Unknown Rx diphenhydrAMINE [Benadryl CAP] 25 mg PO QHS #20 capsule 04/06/19 Unknown Rx Ondansetron [Zofran ODT TAB] 8 mg PO Q12HR #20 tab.rapdis 05/06/19 Unknown Rx Polyethylene Glycol 3350 [Miralax] 17 gm PO DAILY 7 Days #1 bottle 05/06/19 Unknown Rx Ketorolac [Toradol] 10 mg PO Q6H PRN #10 tablet 05/20/19 Unknown Rx ED Physical Exam - General Limitations: No Limitations General appearance: alert, in no apparent distress - Head Head exam: Present: atraumatic, normocephalic - Expanded Head Exam Expanded Head exam: Present: contusion, hematoma 1 - Area of swelling and tenderness. - Eye Eye exam: Present: normal appearance Pupils: Present: other (no signs of entrapment) - ENT ENT exam: Present: mucous membranes moist - Neck Neck exam: Present: normal inspection - Respiratory Respiratory exam: Present: normal lung sounds bilaterally. Absent: respiratory distress - Cardiovascular Cardiovascular Exam: Present: regular rate, normal rhythm. Absent: systolic murmur, diastolic murmur, rubs, gallop - GI/Abdominal GI/Abdominal exam: Present: soft, normal bowel sounds - Rectal Rectal exam: Present: deferred - Extremities Exam Extremities exam: Present: normal inspection - Back Exam Back exam: Present: normal inspection - Neurological Exam Neurological exam: Present: alert, oriented X3 - Psychiatric Psychiatric exam: Present: normal affect, normal mood - Skin Skin exam: Present: warm, dry, intact, normal color. Absent: rash ED Course Vital Signs 05/20/19 05/20/19 01:32 02:25 Temperature 98.9 F Pulse Rate 125 H 114 H Respiratory 20 18 Rate Blood Pressure 135/94 O2 Sat by Pulse 94 95 Oximetry - Medical Decision Making 28-year-old male status post blunt trauma to the left face by the bathroom door causing swelling and pain. CT scan showed no acute processes no signs of of any infectious processes. There was no foreign bodies. Patient is alert and oriented 3 with a GCS of 15 tolerating orals eating food no complication he is ambulatory under his own power speaks in clear sentences. Due to his normal neurological examination and normal CT scan findings and stable presentation no evidence of any urgent or emergent medical condition is present. Question Mr. Mayo several times about the likelihood of a dental infection infection which she stayed stated was not possible no evidence of any dental abscess was visualized on examination however there was very poor dentition No evidence of subarachnoid hemorrhage, intracranial bleed, meningitis, enceph alitis, temporal arteritis, or intracranial mass. Critical care attestation.: If time is entered above; I have spent that time in minutes in the direct care of this critically ill patient, excluding procedure time. ED Disposition Clinical Impression: Facial contusion Disposition: - TO HOME OR SELFCARE Is pt being admited?: No Does the pt Need Aspirin: No Condition: Stable Instructions: Contusion in Adults (ED), Ice Pack Application (ED) Additional Instructions: You have been evaluated in the Emergency Department today for your head injury. Your CT scan did not show signs of bleeds or fractures in your head. We recommend you take 600mg ibuprofen OR Toradol every 6 hours or tylenol 650mg every 6 hours as needed for pain. If needed, you can alternate these medications so that you take one medication every 3 hours. For instance, at noon take ibuprofen, then at 3pm take tylenol, then at 6pm take ibuprofen. Please schedule an appointment for follow up with your primary care physician as soon as possible. Return to the Emergency Department if you experience worsening or uncontrolled pain, vision changes, recurrent vomiting, difficulty with normal activities, a bnormal behavior, difficulty walking, numbness, weakness, or any other concerning symptoms. Thank you for choosing us for your care. Prescriptions: Ketorolac [Toradol] 10 mg PO Q6H PRN #10 tablet PRN Reason: Pain Referrals: PHILIP JEFF MD [Staff Physician] - 3-5 Days
--- NOTE | 2019-05-20 04:49 | Cat Scan Report ---
Examination: CT of the head without contrast Clinical information: Headache. Hit head on door yesterday. Comparison: CT of the head without contrast, 02/16/2016 Technical: Multiple axial CT images of the head were obtained without intravenous contrast. Sagittal and coronal reformats were obtained. All CTs at this facility utilize dose reduction techniques inc luding automated exposure control, iterative reconstruction and weight based dosing when appropriate to reduce patient radiation dose to as low as reasonable achievable. Findings: There is no CT evidence of acute intracranial hemorrhage or large territorial infarct. The ventricular system remains normal in size. There are no extra-axial fluid collections. Evaluation of bony structures demonstrates no evidence of acute bony abnormality. There is mild mucos al thickening of the ethmoid air cells and left maxillary sinus. Impression: 1. No CT evidence of acute intracranial process. Signer Name: Sara Coughlin MD Signed: 05/20/2019 4:44 AM Workstation Name: [id number]
--- NOTE | 2019-05-20 04:52 | Cat Scan Report ---
CT MAXILLOFACIAL WITHOUT CONTRAST INDICATION / CLINICAL INFORMATION: Trauma to the left face. Hit face on the area today. TECHNIQUE: All CT scans at this location are performed using CT dose reduction for ALARA by means of automated e xposure control. COMPARISON: CT of the head, 05/20/2019 FINDINGS: There is no CT evidence of acute facial fracture no significant soft tissue swelling is identified. B ilateral orbits and globes appear grossly normal. No focal soft tissue swelling is identified. There is mild mucosal thickening of the ethmoid air cells and left maxillary sinus. IMPRESSION: 1. No CT evidence of acute facial fracture. Signer Name: Sara Coughlin MD Signed: 05/20/2019 4:48 AM Workstation Name: [id number]
[2019-05-20] MEDS ORDERED: dexAMETHasone 20 MG/5 ML VIAL IM ONE (06:18)
[2019-05-20] MEDS ORDERED: IBUPROFEN 800 MG TAB PO ONE (06:18)
[2019-05-20] MEDS ORDERED: dexAMETHasone 20 MG/5 ML VIAL ONE (06:21)
[2019-05-20] MEDS ORDERED: IBUPROFEN 800 MG TAB ONE (06:21)
[2019-05-20 06:55] VITALS: BP 130/80
== END 2019-05-20 06:40 | disposition home or self-care (01) ==
LOC: ED 01:25
DX: S00.83XA Contusion of other part of head, initial encounter (principal); I10 Essential (primary) hypertension; E11.9 Type 2 diabetes mellitus without complications; F31.9 Bipolar disorder, unspecified; F20.9 Schizophrenia, unspecified; W20.8XXA Other cause of strike by thrown, projected or falling object, initial encounter; Y93.89 Activity, other specified; Y92.89 Other specified places as the place of occurrence of the external cause; Y99.8 Other external cause status
CPT/HCPCS: 70450; 70486; 96372; 99283; J1100

== ENCOUNTER 2019-06-11 03:25 | Emergency (ER) | payer MEDICAID ==
--- NOTE | 2019-06-11 04:33 | XRay Report ---
CHEST 1 VIEW INDICATION / CLINICAL INFORMATION: Chest Pain. COMPARISON: None available. FINDINGS: SUPPORT DEVICES: None. HEART / MEDIASTINUM: No significant abnormality. LUNGS / PLEURA: No significant pulmonary or pleural abnormality. No pneumothorax. ADDITIONAL FINDINGS: Left hemidiaphragm is elevated however and I could not exclude diaphragmatic par alysis. Gallbladder has been removed. IMPRESSION: 1 Elevated left hemidiaphragm. Otherwise negative study Signer Name: Tera Toribio MD Signed: 06/11/2019 4:29 AM Workstation Name: [id number]
--- NOTE | 2019-06-11 06:15 | Emergency Department Report ---
<JACOB DESOUZA - Last Filed: 06/11/19 07:29> ED General Adult HPI - General Chief complaint: Chest Pain Stated complaint: PANIC ATTACK Time Seen by Provider: 06/11/19 04:52 Source: patient Mode of arrival: Ambulatory Limitations: No Limitations - History of Present Illness Initial comments: Patient is a 28-year-old male presents emergency room with complaints of chest pain that began prior to arrival. He states that it lasted for approximately 1 hour. He states the pain was sharp. He states he believes he was having a p anic attack. He states that he has been anxious the last 3 nights and has been having panic attacks. He states he has been getting into arguments and had increased stress due to his family. He denies any symptoms at all currently and has no chest pain. He states he has had these exact same symptoms in the past. He denies any shortness of breath, leg swelling, abdominal pain, nausea, vomiting, diaphoresis. Patient states he has a past medical history of bipolar, ADHD, anxiety, hypertension. He states he has not been on his medications and 6 months. He denies any SI, HI, or hallucinations. He denies any allergies to medicines. - Related Data Previous Rx's Medication Instructions Recorded Last Taken Type Albuterol Sulfate [Ventolin HFA] 2 puff IH Q4H PRN #2 hfa.aer.ad 11/26/13 Unknown Rx predniSONE [Deltasone] 20 mg PO TID #15 tab 11/26/13 Unknown Rx Clindamycin [Clindamycin CAP] 300 mg PO Q8H #30 cap 12/30/16 Unknown Rx Ibuprofen [Motrin 800 MG tab] 800 mg PO Q8HR PRN #21 tablet 12/30/16 Unknown Rx cloZAPine (NF) 100 mg PO QHS #20 tablet 04/06/19 Unknown Rx diphenhydrAMINE [Benadryl CAP] 25 mg PO QHS #20 capsule 04/06/19 Unknown Rx Ondansetron [Zofran ODT TAB] 8 mg PO Q12HR #20 tab.rapdis 05/06/19 Unknown Rx Polyethylene Glycol 3350 [Miralax] 17 gm PO DAILY 7 Days #1 bottle 05/06/19 Unknown Rx Ketorolac [Toradol] 10 mg PO Q6H PRN #10 tablet 11/28/19 Unknown Rx Allergies Allergy/AdvReac Type Severity Reaction Status Date / Time No Known Allergies Allergy Verified 04/06/19 13:10 ED Review of Systems Comment: All other systems reviewed and negative ED Past Medical Hx - Past Medical History Hx Hypertension: Yes Hx Diabetes: Yes Hx Psychiatric Treatment: Yes (schizophrenia, bipolar) Hx Asthma: Yes Additional medical history: behavioral disorder - Surgical History Hx Cholecystectomy: Yes - Social History Smoking Status: Never Smoker Substance Use Type: None - Medications Home Medications: Home Medications Medication Instructions Recorded Confirmed Last Taken Type Albuterol Sulfate [Ventolin HFA] 2 puff IH Q4H PRN #2 hfa.aer.ad 11/26/13 Unknown Rx predniSONE [Deltasone] 20 mg PO TID #15 tab 11/26/13 Unknown Rx Clindamycin [Clindamycin CAP] 300 mg PO Q8H #30 cap 12/30/16 Unknown Rx Ibuprofen [Motrin 800 MG tab] 800 mg PO Q8HR PRN #21 tablet 12/30/16 Unknown Rx cloZAPine (NF) 100 mg PO QHS #20 tablet 04/06/19 Unknown Rx diphenhydrAMINE [Benadryl CAP] 25 mg PO QHS #20 capsule 04/06/19 Unknown Rx Ondansetron [Zofran ODT TAB] 8 mg PO Q12HR #20 tab.rapdis 05/06/19 Unknown Rx Polyethylene Glycol 3350 [Miralax] 17 gm PO DAILY 7 Days #1 bottle 05/06/19 Unknown Rx Ketorolac [Toradol] 10 mg PO Q6H PRN #10 tablet 05/20/19 Unknown Rx ED Physical Exam - General Limitations: No Limitations General appearance: alert, in no apparent distress - Head Head exam: Present: atraumatic, normocephalic - Eye Eye exam: Present: normal appearance - ENT ENT exam: Present: mucous membranes moist - Respiratory Respiratory exam: Present: normal lung sounds bilaterally. Absent: respiratory distress, wheezes, rales, rhonchi, stridor, chest wall tenderness, accessory muscle use, decreased breath sounds, prolonged expiratory - Cardiovascular Cardiovascular Exam: Present: regular rate, normal rhythm, normal heart sounds. Absent: systolic murmur, diastolic murmur, rubs, gallop - Neurological Exam Neurological exam: Present: alert, oriented X3 - Psychiatric Psychiatric exam: Present: normal affect, normal mood - Skin Skin exam: Present: warm, dry, intact ED Course - Consultations Consultation #1: 06/11/19 06:28 Dr. Hansen, ER attending spoke with Dr. Foster, pulmonology who states pt does not need at CT chest, he states that he will evaluate pt in office and he can follow up as an outpatient ED Medical Decision Making - Lab Data Result diagrams: 06/11/19 06:12 ED Disposition Clinical Impression: Anxiety, Elevated diaphragm Chest pain Qualifiers: Chest pain type: unspecified Qualified Code(s): R07.9 - Chest pain, unspecified Disposition: DC-01 TO HOME OR SELFCARE Is pt being admited?: No Does the pt Need Aspirin: No Condition: Stable Instructions: Chest Pain (ED) Additional Instructions: Please follow-up with Dr. Foster, criminal investigator in the next 2-3 days. Please follow-up with a primary care doctor. Please follow-up with [facility]. Return to the emergency room immediately for any new or worsening symptoms or if begin feeling thoughts of wanting to hurt yourself or others. Referrals: SANDY FOSTER MD [Staff Physician] - 2-3 Days PHILIP JEFF MD [Staff Physician] - 2-[address] [facility] [Outside] - 2-3 Days Time of Disposition: 07:30 Print Language: WOLOF <AYLEEN HANSEN III - Last Filed: 06/12/19 03:42> ED Review of Systems ROS: Stated complaint: PANIC ATTACK Other details as noted in HPI ED Course Vital Signs 06/11/19 06/11/19 03:32 08:19 Temperature 98.0 F 98.0 F Pulse Rate 79 72 Respiratory 20 18 Rate Blood Pressure 136/91 Blood Pressure 130/88 [Left] O2 Sat by Pulse 98 99 Oximetry - Reevaluation(s) Reevaluation #1: I examined patient. I discussed case with patient. Discussed results with patient. Discussed plan of care outpatient. Patient agrees to plan of care. Patient stable for discharge. Patient be discharged home. Patient given follow-up instructions. Patient given discharge. Patient voiced understanding of all instructions. 06/11/19 06:41 - Consultations Consultation #1: I discussed case with Dr. cowart, pulmonology and he recommends discharge and to have further evaluation as an outpatient. 06/11/19 06:20 ED Medical Decision Making - Lab Data Result diagrams: 06/11/19 06:12 06/11/19 06:12 Critical care attestation.: If time is entered above; I have spent that time in minutes in the direct care of this critically ill patient, excluding procedure time. ED Disposition Is pt being admited?: No Does the pt Need Aspirin: No
[2019-06-11 06:27] LABS: Basophils # (Auto) 0.1 K/mm3 (0.0-0.1); Basophils % (Auto) 0.9 % (0.0-1.8); Eosinophils # (Auto) 0.6 K/mm3 (0.0-0.4); Eosinophils % (Auto) 7.9 % (0.0-4.3); Lymphocytes % (Auto) 28.4 % (13.4-35.0); Mean Corpuscular HGB Conc 36 % (32-34); Mean Corpuscular Volume 86 fl (84-94); Monocytes # (Auto) 0.5 K/mm3 (0.0-0.8); Monocytes % (Auto) 7.6 % (0.0-7.3); Platelet Count 288 K/mm3 (140-440); Red Blood Count 4.81 M/mm3 (3.65-5.03); Red Cell Distribution Width 13.5 % (13.2-15.2)
[2019-06-11 06:42] LABS: Hematocrit 41.2 % (35.5-45.6); Hemoglobin 14.7 gm/dl (11.8-15.2)
[2019-06-11 07:53] LABS: Alanine Aminotransferase 27 units/L (7-56); Albumin 4.3 g/dL (3.9-5); BUN/Creatinine Ratio 12; Blood Urea Nitrogen 12 mg/dL (9-20); Calcium 9.5 mg/dL (8.4-10.2); Hemolysis Index 2
[2019-06-11 08:20] VITALS: BP 130/88
== END 2019-06-11 08:20 | disposition home or self-care (01) ==
LOC: ED 03:25
DX: F41.9 Anxiety disorder, unspecified (principal); Q79.1 Other congenital malformations of diaphragm; Z79.1 Long term (current) use of non-steroidal anti-inflammatories (NSAID); Z79.899 Other long term (current) drug therapy
CPT/HCPCS: 36415; 71045; 80053; 84484; 85025; 93005; 93010

== ENCOUNTER 2019-08-17 13:38 | Emergency (ER) | payer MEDICAID ==
[2019-08-17] MEDS ORDERED: IBUPROFEN 800 MG TAB PO ONE (15:19)
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
--- NOTE | 2019-08-17 16:33 | XRay Report ---
RIGHT RIBS 5 VIEWS INDICATION / CLINICAL INFORMATION: injury, pain. COMPARISON: None available. FINDINGS: RIBS: No acute, displaced fracture or other acute abnormality. LUNGS: No acute findings. No pneumothorax. Signer Name: Fabrice Dempsey MD Signed: 08/17/2019 4:28 PM Workstation Name: [id number]
[2019-08-17 17:52] VITALS: BP 116/82
--- NOTE | 2019-08-17 18:16 | Cat Scan Report ---
Exam: CT cervical spine History: injury, pain; Technique: Contiguous thin cut axial images obtained through the cervical spine. Sagittal and wyman l reconstructions performed by the technologist. All CT scans at this location are performed using CT dose reduction for ALARA by means of automated exposure control. Findings: No priors. There is no evidence of fracture or traumatic subluxation. No vertebral compression fractures; prever tebral space is normal; in the transverse images, no fracture involving the bony canal. Vertebral bodies are normal in height and alignment. Intervertebral disc spaces are well-maintained. To C3 and C3-C4 disc spaces are normal. Shallow bulgi ng disc is seen at C4-C5 disc level. Neuroforamina are normal. C5-C6 disc space is normal. Anterior bridging osteophyte is seen at C6-C7 disc level. Neuroforamina are normal. C7-T1 disc space is normal. No significant degenerative change seen in the uncinate or facet joints. No significant canal stenosi s or osseous foraminal narrowing. Surrounding soft tissues are grossly normal. Impression: No signs of acute bony trauma to the cervical spine. Signer Name: Joan Jay MD Signed: 08/17/2019 6:11 PM Workstation Name: [id number]
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
== END 2019-08-17 18:30 | disposition left against medical advice (07) ==
LOC: ED 13:38
DX: S16.1XXA Strain of muscle, fascia and tendon at neck level, initial encounter (principal); S20.211A Contusion of right front wall of thorax, initial encounter; S09.90XA Unspecified injury of head, initial encounter; I10 Essential (primary) hypertension; E11.9 Type 2 diabetes mellitus without complications; F20.9 Schizophrenia, unspecified; F31.9 Bipolar disorder, unspecified; J45.909 Unspecified asthma, uncomplicated; Z79.899 Other long term (current) drug therapy; V49.9XXA Car occupant (driver) (passenger) injured in unspecified traffic accident, initial encounter; Y93.89 Activity, other specified; Y92.488 Other paved roadways as the place of occurrence of the external cause; Y99.8 Other external cause status
CPT/HCPCS: 70450; 72125

== ENCOUNTER 2020-02-10 16:53 | Emergency (ER) | payer MEDICAID ==
[2020-02-10 17:08] VITALS: BP 141/85
--- NOTE | 2020-02-10 18:01 | XRay Report ---
CHEST 2 VIEWS INDICATION / CLINICAL INFORMATION: Chest Pain. COMPARISON: Chest x-ray 01/29/2020 FINDINGS: SUPPORT DEVICES: None. HEART / MEDIASTINUM: No significant abnormality. LUNGS / PLEURA: Moderate chronic elevation left hemidiaphragm, unchanged No significant pulmonary or pleural abnormality. No pneumothorax. ADDITIONAL FINDINGS: No significant additional findings. IMPRESSION: 1. No acute findings. Signer Name: Rivera Khan MD Signed: 02/10/2020 5:57 PM Workstation Name: [id number]
[2020-02-10] MEDS ORDERED: ASPIRIN 325 MG TAB PO ONE (18:10)
--- NOTE | 2020-02-10 18:11 | Event Note ---
ED Screening Note Date of service: 02/10/20 Time: 18:09 ED Screening Note: 29-year-old male presents with complaint of chest pain worsening times a week. 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 States missed appointment today due to having chest pain and presents here. Family history of heart attacks at a young age. This initial assessment/diagnostic orders/clinical plan/treatment(s) is/are subject to change based on patients health status, clinical progression and re- assessment by fellow clinical providers in the ED. Further treatment and workup at subsequent clinical providers discretion. Patient/guardian urged not to elope from the ED as their condition may be serious if not clinically assessed and managed. Initial orders include: Labs, chest x-ray, EKG
[2020-02-10 19:32] LABS: Basophils # (Auto) 0.1 K/mm3 (0.0-0.1); Basophils % (Auto) 0.7 % (0.0-1.8); Eosinophils # (Auto) 0.3 K/mm3 (0.0-0.4); Hematocrit 47.3 % (35.5-45.6); Hemoglobin 16.1 gm/dl (11.8-15.2); Lymphocytes # (Auto) 1.8 K/mm3 (1.2-5.4); Lymphocytes % (Auto) 23.4 % (13.4-35.0); Mean Corpuscular HGB Conc 34 % (32-34); Mean Corpuscular Volume 86 fl (84-94); Monocytes # (Auto) 0.4 K/mm3 (0.0-0.8); Monocytes % (Auto) 5.8 % (0.0-7.3); Platelet Count 285 K/mm3 (140-440); Red Blood Count 5.53 M/mm3 (3.65-5.03); Red Cell Distribution Width 13.8 % (13.2-15.2)
[2020-02-10 19:46] LABS: BUN/Creatinine Ratio 10; Blood Urea Nitrogen 10 mg/dL (9-20); Calcium 9.9 mg/dL (8.4-10.2); Hemolysis Index 8
== END 2020-02-10 19:00 | disposition left against medical advice (07) ==
LOC: ED 16:53
DX: R07.89 Other chest pain (principal); Z53.21 Procedure and treatment not carried out due to patient leaving prior to being seen by health care provider
CPT/HCPCS: 36415; 71046; 80048; 84484; 85025; 93005

== ENCOUNTER 2020-12-25 10:47 | Emergency (ER) | payer MEDICAID ==
[2020-12-25 11:06] VITALS: BP 137/85
--- NOTE | 2020-12-25 11:14 | Emergency Department Report ---
HPI - General Chief Complaint: Anxiety Time Seen by Provider: 12/25/20 11:02 - HPI HPI: Room 6 The patient is a 30-year-old male present with a chief complaint of anxiety. The patient has a history of bipolar disorder and anxiety and states he ran out of his Xanax approximately 1.5 weeks ago. Patient states he has had multiple anxiety attacks over the past 1.5 weeks including last night. The patient states during his "panic attacks" he developed shortness of breath and his whole body gets weak. Patient also states his body starts to shake. The patient states he has an appointment to see his psychiatrist in 2 days for refills on his medication ED Past Medical Hx - Past Medical History Hx Hypertension: Yes Hx Heart Attack/AMI: Yes Hx Diabetes: Yes Hx Psychiatric Treatment: Yes (schizophrenia, bipolar) Hx Asthma: Yes Additional medical history: behavioral disorder - Surgical History Hx Cholecystectomy: Yes - Family History Family history: no significant - Social History Smoking Status: Never Smoker Substance Use Type: None (Denies illicit drug use) - Medications Home Medications: Home Medications Medication Instructions Recorded Confirmed Last Taken Type Albuterol Sulfate [Ventolin HFA] 2 puff IH Q4H PRN #2 hfa.aer.ad 11/26/13 03/03/20 Unknown Rx predniSONE [Deltasone] 20 mg PO TID #15 tab 11/26/13 03/03/20 Unknown Rx Ibuprofen [Motrin 800 MG tab] 800 mg PO Q8HR PRN #21 tablet 12/30/16 03/03/20 Unknown Rx diphenhydrAMINE [Benadryl CAP] 25 mg PO QHS #20 capsule 04/06/19 03/03/20 Unknown Rx Polyethylene Glycol 3350 [Miralax] 17 gm PO DAILY 7 Days #1 bottle 05/06/19 03/03/20 Unknown Rx Ketorolac [Toradol] 10 mg PO Q6H PRN #10 tablet 05/20/19 03/03/20 Unknown Rx Naproxen [Naprosyn] 500 mg PO BID #20 tablet 08/17/19 03/03/20 Unknown Rx Albuterol Sulfate [Proventil Hfa] 1 - 2 puff IH Q4HR PRN #1 03/03/20 Unknown Rx hfa.aer.ad Fluticasone/Salmeterol [Advair 1 inhalation INHALATION BID 03/03/20 03/03/20 Unknown History Diskus 250-50 mcg] cloZAPine (NF) 100 mg PO QHS #20 tablet 03/03/20 Unknown Rx LORazepam [Ativan] 0.5 mg PO BID PRN #8 tab 12/25/20 Unknown Rx ED Review of Systems ROS: Stated complaint: PANIC ATTACK Other details as noted in HPI Constitutional: weakness Eyes: denies: eye pain ENT: denies: throat pain Respiratory: shortness of breath Cardiovascular: denies: chest pain Endocrine: no symptoms reported Gastrointestinal: denies: abdominal pain Genitourinary: denies: dysuria Musculoskeletal: denies: back pain Neurological: denies: headache Psychiatric: anxiety Physical Exam - Physical Exam Vital Signs: Vital Signs 12/25/20 11:05 Temperature 98 F Pulse Rate 85 Respiratory 20 Rate Blood Pressure 137/85 [Right] O2 Sat by Pulse 96 Oximetry Physical Exam: GENERAL: The patient is well-developed well-nourished male lying on stretcher not appearing to be in acute distress. [] HEENT: Normocephalic. Atraumatic. Extraocular motions are intact. Patient has moist mucous membranes. NECK: Supple. Trachea midline CHEST/LUNGS: Clear to auscultation. There is no respiratory distress noted. HEART/CARDIOVASCULAR: Regular. There is no tachycardia. There is no gallop rub or murmur. ABDOMEN: Abdomen is soft, nontender. Patient has normal bowel sounds. There is no abdominal distention. SKIN: There is no rash. There is no edema. There is no diaphoresis. NEURO: The patient is awake, alert, and oriented. The patient is cooperative. The patient has no focal neurologic deficits. The patient has normal speech. There is no tremulousness noted. Cranial nerves II through XII grossly intact MUSCULOSKELETAL: There is no evidence of acute injury. ED Course Vital Signs 12/25/20 11:05 Temperature 98 F Pulse Rate 85 Respiratory 20 Rate Blood Pressure 137/85 [Right] O2 Sat by Pulse 96 Oximetry ED Medical Decision Making - Lab Data Result diagrams: 12/25/20 11:42 12/25/20 11:42 Laboratory Tests 12/25/20 12/25/20 12/25/20 11:42 11:42 11:42 WBC 6.2 RBC 5.01 Hgb 14.6 Hct 41.9 MCV 84 MCH 29 MCHC 35 H RDW 14.1 Plt Count 219 Lymph % (Auto) 26.8 [place] % (Auto) 8.5 H Eos % (Auto) 7.5 H Baso % (Auto) 0.7 Lymph # (Auto) 1.7 [place] # (Auto) 0.5 Eos # (Auto) 0.5 H Baso # (Auto) 0.0 Seg Neutrophils % 56.5 Seg Neutrophils # 3.5 D-Dimer 188.83 Sodium 141 Potassium 3.9 Chloride 105.6 Carbon Dioxide 27 Anion Gap 12 BUN 12 Creatinine 1.0 Estimated GFR > 60 BUN/Creatinine Ratio 12 Glucose 97 Calcium 9.3 Total Creatine Kinase 300 H CK-MB (CK-2) 3.5 CK-MB (CK-2) Rel Index 1.1 Troponin T < 0.010 TSH Free T4 12/25/20 11:42 WBC RBC Hgb Hct MCV MCH MCHC RDW Plt Count Lymph % (Auto) [place] % (Auto) Eos % (Auto) Baso % (Auto) Lymph # (Auto) [place] # (Auto) Eos # (Auto) Baso # (Auto) Seg Neutrophils % Seg Neutrophils # D-Dimer Sodium Potassium Chloride Carbon Dioxide Anion Gap BUN Creatinine Estimated GFR BUN/Creatinine Ratio Glucose Calcium Total Creatine Kinase CK-MB (CK-2) CK-MB (CK-2) Rel Index Troponin T TSH 0.966 Free T4 1.10 - EKG Data -: EKG Interpreted by Me EKG shows normal: sinus rhythm Rate: normal - EKG Data When compared to previous EKG there are: previous EKG unavailable Interpretation: other (No ischemic changes seen) - Radiology Data Radiology results: report reviewed (Chest x-ray), image reviewed (Chest x-ray) interpreted by me: Chest [id number] left hemidiaphragm. No focal infiltrates. No pneumothorax [facility] [address] [place] [address] XRay Report Signed Patient: ELY HERNÁNDEZ III MR#: [id number] : 1990 Acct:[id number] Age/Sex: 30 / M ADM Date: 12/25/20 Loc: ED Attending Dr: Ordering Physician: EREN AQUINO MD Date of Service: 12/25/20 Proc edure(s): XR chest 1V ap Accession Number(s): [id number] cc: EREN AQUINO MD Fluoro Time In Minutes: CHEST 1 VIEW 12/25/2020 12:36 PM INDICATION / CLINICAL INFORMATION: Shortness of breath. COMPARISON: 02/10/20 FINDINGS: SUPPORT DEVICES: None. HEART / MEDIASTINUM: No significant abnormality. LUNGS / PLEURA: Moderate elevation of the left hemidiaphragm is unchanged. Lungs are clear. No pneumothorax. ADDITIONAL FINDINGS: No significant additional findings. IMPRESSION: 1. No acute findings. No significant change. Signer Name: Kavya Berman MD Signed: 12/25/2020 1:03 PM Workstation Name: [id number] Transcribed By: DT Dictated By: Cory Berman MD Electronically Authenticated By: Cory Berman MD Signed Date/Time: 12/25/20 130 DD/ 01 TD/TT: Print Cancel - Differential Diagnosis Anxiety, PE, rhabdomyolysis, dysrhythmia, hyperthyroidism Critical care attestation.: If time is entered above; I have spent that time in minutes in the direct care of this critically ill patient, excluding procedure time. ED Disposition Clinical Impression: Anxiety Disposition: DC-01 TO HOME OR SELFCARE Is pt being admited?: No Does the pt Need Aspirin: No Condition: Stable Instructions: Managing Anxiety, Adult Additional Instructions: Return to the emergency department should you develop worsening symptoms, inability to tolerate food or liquids, high fever or any other concerns Prescriptions: LORazepam [Ativan] 0.5 mg PO BID PRN #8 tab PRN Reason: Anxiety [facility] Time of Disposition: 13:46
[2020-12-25 12:16] LABS: Basophils % (Auto) 0.7 % (0.0-1.8); Eosinophils # (Auto) 0.5 K/mm3 (0.0-0.4); Eosinophils % (Auto) 7.5 % (0.0-4.3); Hematocrit 41.9 % (35.5-45.6); Hemoglobin 14.6 gm/dl (11.8-15.2); Lymphocytes # (Auto) 1.7 K/mm3 (1.2-5.4); Lymphocytes % (Auto) 26.8 % (13.4-35.0); Mean Corpuscular HGB Conc 35 % (32-34); Mean Corpuscular Volume 84 fl (84-94); Monocytes # (Auto) 0.5 K/mm3 (0.0-0.8); Monocytes % (Auto) 8.5 % (0.0-7.3); Platelet Count 219 K/mm3 (140-440); Red Blood Count 5.01 M/mm3 (3.65-5.03); Red Cell Distribution Width 14.1 % (13.2-15.2)
[2020-12-25 12:38] LABS: BUN/Creatinine Ratio 12; Blood Urea Nitrogen 12 mg/dL (9-20); Calcium 9.3 mg/dL (8.4-10.2); Creatine Kinase MB 3.5 ng/mL (0.0-4.0); Hemolysis Index 5
[2020-12-25 12:45] LABS: Free T4 (Free Thyroxine) 1.1 ng/dL (0.76-1.46)
--- NOTE | 2020-12-25 13:07 | XRay Report ---
CHEST 1 VIEW 12/25/2020 12:36 PM INDICATION / CLINICAL INFORMATION: Shortness of breath. COMPARISON: 02/10/20 FINDINGS: SUPPORT DEVICES: None. HEART / MEDIASTINUM: No significant abnormality. LUNGS / PLEURA: Moderate elevation of the left hemidiaphragm is unchanged. Lungs are clear. No pneumo thorax. ADDITIONAL FINDINGS: No significant additional findings. IMPRESSION: 1. No acute findings. No significant change. Signer Name: Kavya Berman MD Signed: 12/25/2020 1:03 PM Workstation Name: [id number]
--- NOTE | 2020-12-27 17:48 | Electrocardiograph Report ---
[facility] Test Date: 2020-12-25 Test Time: 13:37:28 Pat Name: ELY HERNÁNDEZ Department: Room: Gender: M Membership Correspondent: MICHAEL : 1990 Requested By: EREN AQUINO Order Number: [id number] Reading MD: Demetrius Abad Measurements Intervals [place] Rate: 70 P: 41 MN: 165 QRS: 88 QRSD: 101 T: 63 QT: 403 QTc: 435 Interpretive Statements Sinus rhythm No previous ECG available for comparison Electronically Signed On 12-27-2020 17:47:32 EDT by Demetrius Abad
== END 2020-12-25 14:12 | disposition home or self-care (01) ==
LOC: ED 10:47
DX: F41.9 Anxiety disorder, unspecified (principal); Z79.899 Other long term (current) drug therapy; Z88.8 Allergy status to other drugs, medicaments and biological substances
CPT/HCPCS: 36415; 71045; 80048; 82550; 82553; 84439; 84443; 84484; 85025; 85379; 93005

== ENCOUNTER 2021-03-26 08:39 | Emergency (ER) | payer MEDICAID ==
[2021-03-26 08:43] VITALS: BP 140/96
[2021-03-26] MEDS ORDERED: HYDROcodone/ACETAMINOPHEN 10-325MG TAB PO ONE (09:18)
--- NOTE | 2021-03-26 10:13 | XRay Report ---
RIGHT KNEE AP AND LATERAL VIEWS INDICATION: Right knee pain after fall. COMPARISON: No relevant prior imaging study available. FINDINGS: No fracture, dislocation, or joint effusion. No significant soft tissue swelling. IMPRESSION: 1. No acute findings. THORACIC SPINE 4 VIEWS LUMBAR SPINE 4 VIEWS INDICATION: Back pain s/p fall. COMPARISON: No relevant prior imaging study available. FINDINGS: Thoracic spine: No acute fracture or subluxation is seen. No significant degenerative changes. Lumbar spine: No acute fracture or subluxation is seen. No significant degenerative changes. SI joint s are within normal limits. IMPRESSION: 1. No acute findings. Signer Name: Lonny Lott MD Signed: 03/26/2021 10:09 AM Workstation Name: [id number]
--- NOTE | 2021-03-26 10:40 | Cat Scan Report ---
CT head/brain wo con INDICATION: pain s/p fall with LOC nausea, blurred vison . TECHNIQUE: Routine CT head. All CT scans at this location are performed using CT dose reduction for A CESAR by means of automated exposure control. COMPARISON: 08/17/2019 CT head FINDINGS: Intracranial: Thomas-white matter differentiation is maintained. No intracranial hemorrhage. No extra a xial collection. No hydrocephalus. No herniation. Sinuses: Paranasal sinuses and mastoid air cells are essentially clear. Orbits: Globes are intact. Calvarium: No acute fracture. IMPRESSION: 1. No acute intracranial abnormality. Signer Name: Ankur Lowe MD Signed: 03/26/2021 10:36 AM Workstation Name: [id number]
--- NOTE | 2021-03-26 10:49 | Cat Scan Report ---
CT cervical spine wo con INDICATION: pain s/p fall with LOC. TECHNIQUE: Axial CT images of the cervical spine were obtained. Sagittal and coronal reformatted images were pro duced. All CT scans at this location are performed using CT dose reduction for ALARA by means of auto mated exposure control. COMPARISON: None available. FINDINGS: ALIGNMENT: Normal alignment. VERTEBRAE: No fracture. Vertebral body heights are preserved. C1 and C2 are congruent. SPONDYLOSIS: Mild C6-C7 spondylosis. Mild right osseous C4-C5 foraminal narrowing. SOFT TISSUES: No significant soft tissue abnormality. ADDITIONAL FINDINGS: No significant additional findings. IMPRESSION: 1. No fracture of the cervical spine. Signer Name: Ankur Lowe MD Signed: 03/26/2021 10:44 AM Workstation Name: [id number]
--- NOTE | 2021-03-26 11:54 | Emergency Department Report ---
ED Fall HPI - General Chief Complaint: Fall Stated Complaint: BACK/LEFT ARM PAIN Time Seen by Provider: 03/26/21 09:03 Source: patient Mode of arrival: Stretcher - History of Present Illness Initial Comments: This is a 30-year-old male nontoxic, well nourished in appearance, no acute signs of distress presents to the ED with c/o of headache, neck pain, right knee pains, mid and lower back pain s/p fall that occurred this morning around 3 AM. Patient stated had a mechanical trip and fall ground-level from the rain. Patient describes headache as diffuse with level of 8 out of 10. Stated had a ? LOC. Patient denies any visual changes. Patient denies worse headache. Patient denies thunderclap headache. Patient denies any radiation of pain. Patient denies any radiation of pain. Patient denies facial drooping or one sided weakness. Patient denies any other injuries or trauma. Denies any bladder or bowel instability. Patient denies any urinary symptoms. Denies any fever, chills, nausea, vomiting, stiff neck, chest pain or shortness of breath. Patient denies any numbness or tingling. Patient stated allergies to lisinopril. -: This morning Place Fall Occurred: street Loss of Consciousness: unsure Prolonged Down Time?: no Symptoms Prior to Fall: none Location: head, neck, back Location - Extremities: Right: Knee Severity: mild Severity scale (0 -10): 8 Quality: aching Context: tripped/slipped Associated Symptoms: headache, neck pain. denies: numbness, weakness, chest paint, shortness of breath, abdominal pain, hematuria, unable to walk, lightheaded, vertigo, confusion - Related Data Home Medications Medication Instructions Recorded Confirmed Last Taken Fluticasone/Salmeterol [Advair 1 inhalation INHALATION BID 03/03/20 03/03/20 Unknown Diskus 250-50 mcg] Previous Rx's Medication Instructions Recorded Last Taken Type Albuterol Sulfate [Ventolin HFA] 2 puff IH Q4H PRN #2 hfa.aer.ad 11/26/13 Unknown Rx predniSONE [Deltasone] 20 mg PO TID #15 tab 11/26/13 Unknown Rx Ibuprofen [Motrin 800 MG tab] 800 mg PO Q8HR PRN #21 tablet 07/10/17 Unknown Rx diphenhydrAMINE [Benadryl CAP] 25 mg PO QHS #20 capsule 04/06/19 Unknown Rx Polyethylene Glycol 3350 [Miralax] 17 gm PO DAILY 7 Days #1 bottle 05/06/19 Unknown Rx Ketorolac [Toradol] 10 mg PO Q6H PRN #10 tablet 05/20/19 Unknown Rx Naproxen [Naprosyn] 500 mg PO BID #20 tablet 08/17/19 Unknown Rx Albuterol Sulfate [Proventil Hfa] 1 - 2 puff IH Q4HR PRN #1 03/03/20 Unknown Rx hfa.aer.ad cloZAPine (NF) 100 mg PO QHS #20 tablet 03/03/20 Unknown Rx LORazepam [Ativan] 0.5 mg PO BID PRN #8 tab 12/25/20 Unknown Rx Cyclobenzaprine [Flexeril] 10 mg PO QHS PRN #10 tablet 03/26/21 Unknown Rx Naproxen 500 mg PO Q12H PRN #12 tablet 03/26/21 Unknown Rx Allergies Allergy/AdvReac Type Severity Reaction Status Date / Time lisinopril Allergy Unknown Verified 03/03/20 07:59 ED Review of Systems ROS: Stated complaint: BACK/LEFT ARM PAIN Other details as noted in HPI Comment: All other systems reviewed and negative Constitutional: denies: chills, fever Eyes: denies: eye pain, eye discharge, vision change ENT: denies: ear pain, throat pain Respiratory: denies: cough, shortness of breath, wheezing Cardiovascular: denies: chest pain, palpitations Endocrine: no symptoms reported Gastrointestinal: denies: abdominal pain, nausea, vomiting, diarrhea Genitourinary: denies: urgency, dysuria Musculoskeletal: back pain. denies: joint swelling, arthralgia Skin: denies: rash, lesions Neurological: headache. denies: weakness, paresthesias Psychiatric: denies: anxiety, depression Hematological/Lymphatic: denies: easy bleeding, easy bruising ED Past Medical Hx - Past Medical History Previous Medical History?: Yes Hx Hypertension: Yes Hx Heart Attack/AMI: Yes Hx Diabetes: Yes Hx Psychiatric Treatment: Yes (schizophrenia, bipolar) Hx Asthma: Yes Additional medical history: behavioral disorder - Surgical History Past Surgical History?: Yes Hx Cholecystectomy: Yes - Social History Smoking Status: Never Smoker Substance Use Type: None (Denies illicit drug use) - Medications Home Medications: Home Medications Medication Instructions Recorded Confirmed Last Taken Type Albuterol Sulfate [Ventolin HFA] 2 puff IH Q4H PRN #2 hfa.aer.ad 11/26/13 03/03/20 Unknown Rx predniSONE [Deltasone] 20 mg PO TID #15 tab 11/26/13 03/03/20 Unknown Rx Ibuprofen [Motrin 800 MG tab] 800 mg PO Q8HR PRN #21 tablet 12/30/16 03/03/20 Unknown Rx diphenhydrAMINE [Benadryl CAP] 25 mg PO QHS #20 capsule 04/06/19 03/03/20 Unknown Rx Polyethylene Glycol 3350 [Miralax] 17 gm PO DAILY 7 Days #1 bottle 05/06/19 03/03/20 Unknown Rx Ketorolac [Toradol] 10 mg PO Q6H PRN #10 tablet 05/20/19 03/03/20 Unknown Rx Naproxen [Naprosyn] 500 mg PO BID #20 tablet 08/17/19 03/03/20 Unknown Rx Albuterol Sulfate [Proventil Hfa] 1 - 2 puff IH Q4HR PRN #1 03/03/20 Unknown Rx hfa.aer.ad Fluticasone/Salmeterol [Advair 1 inhalation INHALATION BID 03/03/20 03/03/20 Unknown History Diskus 250-50 mcg] cloZAPine (NF) 100 mg PO QHS #20 tablet 03/03/20 Unknown Rx LORazepam [Ativan] 0.5 mg PO BID PRN #8 tab 12/25/20 Unknown Rx Cyclobenzaprine [Flexeril] 10 mg PO QHS PRN #10 tablet 03/26/21 Unknown Rx Naproxen 500 mg PO Q12H PRN #12 tablet 03/26/21 Unknown Rx ED Physical Exam - General Limitations: No Limitations General appearance: alert, in no apparent distress - Head Head exam: Present: atraumatic, normocephalic - Eye Eye exam: Present: normal appearance, PERRL, EOMI - ENT ENT exam: Present: normal exam, normal orophraynx - Neck Neck exam: Present: normal inspection, full ROM. Absent: lymphadenopathy - Respiratory Respiratory exam: Present: normal lung sounds bilaterally. Absent: respiratory distress, wheezes, rales, rhonchi, stridor, chest wall tenderness, accessory muscle use, decreased breath sounds, prolonged expiratory - Cardiovascular Cardiovascular Exam: Present: regular rate, normal rhythm, normal heart sounds. Absent: bradycardia, tachycardia, irregular rhythm, systolic murmur, diastolic murmur, rubs, gallop - GI/Abdominal GI/Abdominal exam: Present: soft, normal bowel sounds. Absent: distended, tenderness, guarding, rebound, rigid, diminished bowel sounds - Extremities Exam Extremities exam: Present: normal inspection, full ROM, tenderness, normal capillary refill. Absent: joint swelling, calf tenderness - Expanded Lower Extremity Exam Right Hip exam: Present: normal inspection, full ROM. Absent: tenderness, swelling Upper Leg exam: Present: normal inspection, full ROM. Absent: tenderness, swelling Knee exam: Present: normal inspection, full ROM, tenderness, full knee extension. Absent: swelling, abrasion, laceration, ecchymosis, deformity, crepidus, dislocation, erythema, effusion, pain w/ pronation/supination, posterior draw sign, pain/laxity with valgus, pain/laxity with varus Lower Leg exam: Present: normal inspection, full ROM. Absent: tenderness, swelling Ankle exam: Present: normal inspection, full ROM. Absent: tenderness, swelling Foot/Toe exam: Present: normal inspection, full ROM. Absent: tenderness, swelling Neuro vascular tendon exam: Present: no vascular compromise Gait: Positive: observed and normal - Back Exam Back exam: Present: normal inspection, full ROM, paraspinal tenderness (Cervical, thoracic and lumbar), vertebral tenderness (Cervical, thoracic and lumbar). Absent: tenderness, CVA tenderness (R), CVA tenderness (L), muscle spasm, rash noted - Expanded Back Exam Expanded Back exam: Absent: saddle anesthesia Back exam: Negative Straight Leg Raising: Left, Right - Neurological Exam Neurological exam: Present: alert, oriented X3, normal gait - Expanded Neurological Exam Expanded Patient oriented to: Present: person, place, time Cranial nerves: EOM's Intact: Normal, Facial Sensation: Normal Cerebellar function: Finger to Nose: Normal Upper motor neuron: Sensory Extinction: Normal Motor strength exam: RUE: 5, LUE: 5, RLE: 5, LLE: 5 Best Eye Response ([place]): (4) open spontaneously Best Motor Response ([place]): (6) obeys commands Best Verbal Response (Elías): (5) oriented Elías Total: 15 - Psychiatric Psychiatric exam: Present: normal affect, normal mood - Skin Skin exam: Present: warm, dry, intact, normal color. Absent: rash ED Course Vital Signs 03/26/21 03/26/21 08:42 09:57 Temperature 98.2 F Pulse Rate 90 Respiratory 16 18 Rate Blood Pressure 140/96 [Right] O2 Sat by Pulse 97 Oximetry - Reevaluation(s) Reevaluation #1: 03/26/21 11:56 Patient is speaking in full sentences with no signs of distress noted. ED Medical Decision Making - Radiology Data [address] [address] XRay Report Signed Patient: ELY HERNÁNDEZ III MR#: [id number] : 1990 Acct:[id number] Age/Sex: 30 / M ADM Date: 03/26/21 Loc: ED Attending Dr: Ordering Physician: MONALISA ARAUJO NP Date of Service: 03/26/21 Procedure(s): XR spine thoracic 2V Accession Number(s): [id number] cc: MONALISA ARAUJO NP Fluoro Time In Minutes: RIGHT KNEE AP AND LATERAL VIEWS INDICATION: Right knee pain after fall. COMPARISON: No relevant prior imaging study available. FINDINGS: No fracture, dislocation, or joint effusion. No significant soft tissue swelling. IMPRESSION: 1. No acute findings. THORACIC SPINE 4 VIEWS LUMBAR SPINE 4 VIEWS INDICATION: Back pain s/p fall. COMPARISON: No relevant prior imaging study available. FINDINGS: Thoracic spine: No acute fracture or subluxation is seen. No significant degenerative changes. Lumbar spine: No acute fracture or subluxation is seen. No significant degenerative changes. SI joints are within normal limits. IMPRESSION: 1. No acute findings. Signer Name: Lonny Lott MD Signed: 03/26/2021 10:09 AM Workstation Name: [id number] Transcribed By: KATIANA Dictated By: Lonny Lott MD Electronically Authenticated By: Lonny Lott MD Signed Date/Time: 03/26/21 1009 DD/ 1006 TD/TT: [address] [address] Cat Scan Report Signed Patient: ELY HERNÁNDEZ III MR#: [id number] : 1990 Acct:[id number] Age/Sex: 30 / M ADM Date: 03/26/21 Loc: ED Attending Dr: Ordering Physician: MONALISA ARAUJO NP Date of Service: 03/26/21 Procedure(s): CT cervical spine wo con Accession Number(s): [id number] cc: MONALISA ARAUJO NP CT cervical spine wo con INDICATION: pain s/p fall with LOC. TECHNIQUE: Axial CT images of the cervical spine were obtained. Sagittal and coronal reformatted images were produced. All CT scans at this location are performed using CT dose reduction for ALARA by means of automated exposure control. COMPARISON: None available. FINDINGS: ALIGNMENT: Normal alignment. VERTEBRAE: No fracture. Vertebral body heights are preserved. C1 and C2 are congruent. SPONDYLOSIS: Mild C6-C7 spondylosis. Mild right osseous C4-C5 foraminal narrowing. SOFT TISSUES: No significant soft tissue abnormality. ADDITIONAL FINDINGS: No significant additional findings. IMPRESSION: 1. No fracture of the cervical spine. Signer Name: Ankur Lowe MD Signed: 03/26/2021 10:44 AM Workstation Name: [id number] Transcribed By: CS Dictated By: Ankur Lowe MD Electronically Authenticated By: Ankur Lowe MD Signed Date/Time: 03/26/211043 DD/ 41 TD/TT: [facility] [address] [place] [address] Cat Scan Report Signed Patient: ELY HERNÁNDEZ III MR#: [id number] : 1990 Acct:[id number] Age/Sex: 30 / M ADM Date: 03/26/21 Loc: ED Attending Dr: Ordering Physician: MONALISA ARAUJO NP Date of Service: 03/26/21 Procedure(s): CT head/brain wo con Accession Number(s): [id number] cc: MONALISA ARAUJO NP CT head/brain wo con INDICATION: pain s/p fall with LOC nausea, blurred vison . TECHNIQUE: Routine CT head. All CT scans at this location are performed using CT dose reduction for ALARA by means of automated exposure control. COMPARISON: 08/17/2019 CT head FINDINGS: Intracranial: Thomas-white matter differentiation is maintained. No intracranial hemorrhage. No extra axial collection. No hydrocephalus. No herniation. Sinuses: Paranasal sinuses and mastoid air cells are essentially clear. Orbits: Globes are intact. Calvarium: No acute fracture. IMPRESSION: 1. No acute intracranial abnormality. Signer Name: Ankur Lowe MD Signed: 03/26/2021 10:36 AM Workstation Name: [id number] Transcribed By: Dictated By: Ankur Lowe MD Electronically Authenticated By: Ankur Lowe MD Signed Date/Time: 03/26/21 1036 DD/ 1034 TD/TT: [address] [address] XRay Report Signed Patient: ELY HERNÁNDEZ III MR#: [id number] : 1990 Acct:[id number] Age/Sex: 30 / M ADM Date: 03/26/21 Loc: ED Attending Dr: Ordering Physician: MONALISA ARAUJO NP Date of Service: 03/26/21 Pr ocedure(s): XR spine lumbosacral 2-3V Accession Number(s): [id number] cc: MONALISA ARAUJO NP Fluoro Time In Minutes: RIGHT KNEE AP AND LATERAL VIEWS INDICATION: Right knee pain after fall. COMPARISON: No relevant prior imaging study available. FINDINGS: No fracture, dislocation, or joint effusion. No significant soft tissue swelling. IMPRESSION: 1. No acute findings. THORACIC SPINE 4 VIEWS LUMBAR SPINE 4 VIEWS INDICATION: Back pain s/p fall. COMPARISON: No relevant prior imaging study available. FINDINGS: Thoracic spine: No acute fracture or subluxation is seen. No significant degenerative changes. Lumbar spine: No acute fracture or subluxation is seen. No significant degenerative changes. SI joints are within normal limits. IMPRESSION: 1. No acute findings. Signer Name: Lonny Lott MD Signed: 03/26/2021 10:09 AM Workstation Name: [id number] Transcribed By: Dictated By: Lonny Lott MD Electronically Authenticated By: Lonny Lott MD Signed Date/Time: 03/26/21 1009 DD/ 1006 TD/TT: [address] [address] XRay Report Signed Patient: ELY HERNÁNDEZ III MR#: [id number] : 1990 Acct:[id number] Age/Sex: 30 / M ADM Date: 03/26/21 Loc: ED Attending Dr: Ordering Physician: MONALISA ARAUJO NP Date of Service: 03/26/21 Procedure(s): XR knee 1-2V RT Accession Number(s): [id number] cc: MONALISA ARAUJO NP Fluoro Time In Minutes: RIGHT KNEE AP AND LATERAL VIEWS INDICATION: Right knee pain after fall. COMPARISON: No relevant prior imaging study available. FINDINGS: No fracture, dislocation, or joint effusion. No significant soft tissue swelling. IMPRESSION: 1. No acute findings. THORACIC SPINE 4 VIEWS LUMBAR SPINE 4 VIEWS INDICATION: Back pain s/p fall. COMPARISON: No relevant prior imaging study available. FINDINGS: Thoracic spine: No acute fracture or subluxation is seen. No significant degenerative changes. Lumbar spine: No acute fracture or subluxation is seen. No significant degenerative changes. SI joints are within normal limits. IMPRESSION: 1. No acute findings. Signer Name: Lonny Lott MD Signed: 03/26/2021 10:09 AM Workstation Name: [id number] Transcribed By: Dictated By: Lonny Lott MD Electronically Authenticated By: Lonny Lott MD Signed Date/Time: 03/26/21 1009 DD/ 1006 TD/TT: - Medical Decision Making ED course; this is a 30-year-old male that presents with fall injuries 1- patient was examined by me patient is stable. Imaging results has been obtained and patient is notified with no questions noted by the patient. 2- patient received normal in the ED with stating that symptoms are improving and are subsiding. Stated family member will drive patient home after discharge due to possible drowsiness. 3- patient received naproxen and Flexeril at discharge and was instructed not to operate any machinery while taking Flexeril due to sebaceous drowsiness. 4- patient was instructed to Follow-up with your primary care and orthopedic doctor in 3-5 days or if symptoms worsen such as bladder or bowel stability, chest pain, short of breath, numbness or tingling sensation in extremities, headache, dizziness, visual changes, nausea vomiting, or abdominal pain, return back to emergency room as was possible. 5- At time time of discharge, the patient does not seem toxic or ill in appearance. No acute signs of distress noted. Patient agrees to discharge treatment plan of care. No further questions noted by the patient. Critical care attestation.: If time is entered above; I have spent that time in minutes in the direct care of this critically ill patient, excluding procedure time. ED Disposition Clinical Impression: Thoracic spine pain Fall Qualifiers: Encounter type: initial encounter Qualified Code(s): W19.XXXA - Unspecified fall, initial encounter Neck injury Qualifiers: Encounter type: initial encounter Qualified Code(s): S19.9XXA - Unspecified injury of neck, initial encounter Head contusion Qualifiers: Encounter type: initial encounter Contusion of head detail: scalp Qualified Code(s): S00.03XA - Contusion of scalp, initial encounter Lower back injury Qualifiers: Encounter type: initial encounter Qualified Code(s): S39.92XA - Unspecified injury of lower back, initial encounter Right knee injury Qualifiers: Encounter type: initial encounter Qualified Code(s): S89.91XA - Unspecified injury of right lower leg, initial encounter Headache Qualifiers: Headache type: unspecified Headache chronicity pattern: acute headache Intractability: not intractable Qualified Code(s): R51.9 - Headache, unspecified Disposition: 01 HOME / SELF CARE / HOMELESS Is pt being admited?: No Does the pt Need Aspirin: No Condition: Stable Instructions: Cyclobenzaprine tablets, RICE Therapy for Routine Care of Injuries, [id number] Additional Instructions: Follow-up with your primary care and orthopedic doctor in 3-5 days or if symptoms worsen such as bladder or bowel stability, chest pain, short of breath, numbness or tingling sensation in extremities, headache, dizziness, visual changes, nausea vomiting, or abdominal pain, return back to emergency room as was possible. Take naproxen and Flexeril as prescribed. Do not operate heavy machinery while taking Flexeril due to sedation No physical activity that extremity until cleared by orthopedic doctor Prescriptions: Cyclobenzaprine [Flexeril] 10 mg PO QHS PRN #10 tablet PRN Reason: Muscle Spasm Naproxen 500 mg PO Q12H PRN #12 tablet PRN Reason: Pain , Severe (7-10) Referrals: PRIMARY MD SHELIA [Primary Care Provider] - 3-5 Days PHILIP JEFF MD [Staff Physician] - 3-5 Days Forms: Work/School Release Form(ED) Time of Disposition: 12:15
== END 2021-03-26 12:38 | disposition home or self-care (01) ==
LOC: ED 08:39
DX: S00.03XA Contusion of scalp, initial encounter (principal); S39.92XA Unspecified injury of lower back, initial encounter; S19.9XXA Unspecified injury of neck, initial encounter; S89.91XA Unspecified injury of right lower leg, initial encounter; M54.6 Pain in thoracic spine; I10 Essential (primary) hypertension; E11.8 Type 2 diabetes mellitus with unspecified complications; J45.909 Unspecified asthma, uncomplicated; F20.9 Schizophrenia, unspecified; F32.9 Major depressive disorder, single episode, unspecified; F91.9 Conduct disorder, unspecified; Z98.890 Other specified postprocedural states; Z88.8 Allergy status to other drugs, medicaments and biological substances; W19.XXXA Unspecified fall, initial encounter; Y93.89 Activity, other specified; Y92.89 Other specified places as the place of occurrence of the external cause; Y99.8 Other external cause status
CPT/HCPCS: 70450; 72070; 72100; 72125; 99284

== ENCOUNTER 2021-04-01 10:56 | Emergency (ER) | payer MEDICAID ==
[2021-04-01 11:07] VITALS: BP 140/80
== END 2021-04-01 11:05 | disposition left against medical advice (07) ==
LOC: ED 10:56
DX: E86.0 Dehydration (principal); Z53.21 Procedure and treatment not carried out due to patient leaving prior to being seen by health care provider

== ENCOUNTER 2021-08-26 10:58 | Emergency (ER) | payer MEDICARE, MEDICAID ==
--- NOTE | 2021-08-26 13:23 | Emergency Department Report ---
ED General Adult HPI - General Chief complaint: Chest Pain Stated complaint: I am having a panic Time Seen by Provider: 08/26/21 13:08 Source: patient, EMS ( EMS documentation not available at time of chart dictation ), RN notes reviewed, old records reviewed Mode of arrival: Stretcher Limitations: No Limitations - History of Present Illness Initial comments: This patient is a 31-year-old gentleman, who is a frequent utilizer of the emergency room, who presents to the ER today with complaint of chest tightness associated with typical panic attacks. Patient reports that he expects an impending restraining order at this time, and he reports that this restraining order and psychosocial stressors are inducing his panic attacks. He reports that he takes Xanax and a number of psychiatric medications. He endorses chronic chest tightness for the past 4 days, associated with anxiety and panic attack. He denies travel, surgery, immobilization, leg pain, leg swelling DVT and pulmonary embolism risk factors. The patient presented December 2020 with similar symptoms, and had unremarkable laboratory studies, including negative D-dimer, unremarkable troponin, unremarkable CK, normal free T4, and TSH. Ports no fever, nausea, vomiting, diarrhea. He reports that he is a virgin, but reports reddish colored urine. He testicular pain. He is not homicidal or suicidal He is not having hallucinations. He does not have access to guns or firearms -: Gradual, days(s) Consistency: constant Improves with: none Worsens with: none - Related Data Home Medications Medication Instructions Recorded Confirmed Last Taken Fluticasone/Salmeterol [Advair 1 inhalation INHALATION BID 03/03/20 03/03/20 Unknown Diskus 250-50 mcg] Previous Rx's Medication Instructions Recorded Last Taken Type Albuterol Sulfate [Ventolin HFA] 2 puff IH Q4H PRN #2 hfa.aer.ad 11/26/13 Unknown Rx predniSONE [Deltasone] 20 mg PO TID #15 tab 11/26/13 Unknown Rx Ibuprofen [Motrin 800 MG tab] 800 mg PO Q8HR PRN #21 tablet 12/30/16 Unknown Rx diphenhydrAMINE [Benadryl CAP] 25 mg PO QHS #20 capsule 04/06/19 Unknown Rx Polyethylene Glycol 3350 [Miralax] 17 gm PO DAILY 7 Days #1 bottle 11/14/19 Unknown Rx Ketorolac [Toradol] 10 mg PO Q6H PRN #10 tablet 05/20/19 Unknown Rx Naproxen [Naprosyn] 500 mg PO BID #20 tablet 08/17/19 Unknown Rx Albuterol Sulfate [Proventil Hfa] 1 - 2 puff IH Q4HR PRN #1 03/03/20 Unknown Rx hfa.aer.ad cloZAPine (NF) 100 mg PO QHS #20 tablet 03/03/20 Unknown Rx LORazepam [Ativan] 0.5 mg PO BID PRN #8 tab 12/25/20 Unknown Rx Cyclobenzaprine [Flexeril] 10 mg PO QHS PRN #10 tablet 03/26/21 Unknown Rx Naproxen 500 mg PO Q12H PRN #12 tablet 03/26/21 Unknown Rx Allergies Allergy/AdvReac Type Severity Reaction Status Date / Time lisinopril Allergy Unknown Verified 08/26/21 11:03 ED Review of Systems ROS: Stated complaint: CHEST PAIN Other details as noted in HPI Constitutional: denies: fever Eyes: denies: eye discharge Respiratory: denies: cough Cardiovascular: chest pain, palpitations Gastrointestinal: denies: abdominal pain, nausea, vomiting Genitourinary: as per HPI. denies: testicular pain Psychiatric: anxiety. denies: homicidal thoughts, suicidal thoughts ED Past Medical Hx - Past Medical History Hx Hypertension: Yes Hx Heart Attack/AMI: Yes Hx Diabetes: Yes Hx Psychiatric Treatment: Yes (schizophrenia, bipolar) Hx Asthma: Yes Additional medical history: behavioral disorder - Surgical History Hx Cholecystectomy: Yes - Social History Smoking Status: Never Smoker Substance Use Type: None (Denies illicit drug use) - Medications Home Medications: Home Medications Medication Instructions Recorded Confirmed Last Taken Type Albuterol Sulfate [Ventolin HFA] 2 puff IH Q4H PRN #2 hfa.aer.ad 11/26/13 03/03/20 Unknown Rx predniSONE [Deltasone] 20 mg PO TID #15 tab 11/26/13 03/03/20 Unknown Rx Ibuprofen [Motrin 800 MG tab] 800 mg PO Q8HR PRN #21 tablet 12/30/16 03/03/20 Unknown Rx diphenhydrAMINE [Benadryl CAP] 25 mg PO QHS #20 capsule 04/06/19 03/03/20 Unknown Rx Polyethylene Glycol 3350 [Miralax] 17 gm PO DAILY 7 Days #1 bottle 05/06/19 03/03/20 Unknown Rx Ketorolac [Toradol] 10 mg PO Q6H PRN #10 tablet 05/20/19 03/03/20 Unknown Rx Naproxen [Naprosyn] 500 mg PO BID #20 tablet 08/17/19 03/03/20 Unknown Rx Albuterol Sulfate [Proventil Hfa] 1 - 2 puff IH Q4HR PRN #1 03/03/20 Unknown Rx hfa.aer.ad Fluticasone/Salmeterol [Advair 1 inhalation INHALATION BID 03/03/20 03/03/20 Unknown History Diskus 250-50 mcg] cloZAPine (NF) 100 mg PO QHS #20 tablet 03/03/20 Unknown Rx LORazepam [Ativan] 0.5 mg PO BID PRN #8 tab 12/25/20 Unknown Rx Cyclobenzaprine [Flexeril] 10 mg PO QHS PRN #10 tablet 03/26/21 Unknown Rx Naproxen 500 mg PO Q12H PRN #12 tablet 03/26/21 Unknown Rx ED Physical Exam - General Limitations: No Limitations General appearance: alert, in no apparent distress, obese - Head Head exam: Present: atraumatic, normocephalic - Eye Eye exam: Present: normal appearance, EOMI. Absent: nystagmus - ENT ENT exam: Present: normal exam, normal orophraynx, mucous membranes moist, normal external ear exam - Neck Neck exam: Present: normal inspection, full ROM. Absent: tenderness, meningismus - Respiratory Respiratory exam: Present: normal lung sounds bilaterally, chest wall tenderness. Absent: respiratory distress, wheezes, rales, rhonchi, stridor - Cardiovascular Cardiovascular Exam: Present: regular rate, normal rhythm, normal heart sounds. Absent: bradycardia, tachycardia, irregular rhythm, systolic murmur, diastolic murmur, rubs, gallop - GI/Abdominal GI/Abdominal exam: Present: soft. Absent: distended, tenderness, guarding, rebound, rigid, pulsatile mass - Rectal Rectal exam: Present: deferred - Extremities Exam Extremities exam: Present: normal inspection, full ROM, other (2+ pulses noted in the bilateral upper and lower extremities. There is no palpable cord. negative Homans sign. Muscular compartments are soft. The pelvis is stable.). Absent: pedal edema, calf tenderness - Back Exam Back exam: Present: normal inspection, full ROM. Absent: tenderness, CVA tender ness (R), CVA tenderness (L), paraspinal tenderness, vertebral tenderness - Neurological Exam Neurological exam: Present: alert, oriented X3, normal gait, other (No facial droop. Tongue midline. Extraocular movements intact bilaterally. Facial sensation intact to light touch in V1, V2, V3 distribution bilaterally. 5 and a 5 strength in 4 extremities. Sensation intact to light touch in 4 extremities.). Absent: motor sensory deficit - Psychiatric Psychiatric exam: Present: anxious. Absent: homicidal ideation, suicidal ideation - Skin Skin exam: Present: warm, dry, intact, normal color. Absent: rash ED Course Vital Signs 08/26/21 11:00 Temperature 98 F Pulse Rate 90 Respiratory 18 Rate Blood Pressure 162/90 [Left] O2 Sat by Pulse 98 Oximetry ED Medical Decision Making - Lab Data Vital Signs 08/26/21 11:00 Temperature 98 F Pulse Rate 90 Respiratory 18 Rate Blood Pressure 162/90 [Left] O2 Sat by Pulse 98 Oximetry - EKG Data -: EKG Interpreted by Al EKG shows normal: sinus rhythm Rate: normal - EKG Data Interpretation: unchanged when compared t (March 2020) 08/26/21 13:23 The EKG is interpreted at 11: 09 Sinus rhythm, 92 bpm. Borderline rightward axis deviation, QTC 441 ms. High left ventricular voltage. Abnormal EKG. Not a STEMI. Normal P wave axis. - Medical Decision Making Differential diagnosis, including but not limited to GERD, gastritis, hiatal hernia, anxiety, encounter for medical screening exam, encounter for behavioral health screening exam Assessment and plan: 31-year-old gentleman, who is clinically sober, with a GCS of 15, who is not currently tachycardic, tachypneic or hypoxic, who denies DVT and pulmonary embolism risk factors, who is low risk by Wells criteria for pulmonary embolism, and is PERC negative, presenting to the ER with 4 days of anxiety, and chest tightness. EKG unchanged from prior. Saturating 100% on room air. Has reproducible chest wall tenderness. Lung sounds unremarkable. Had a similar presentation December 2020. Work-up at that time was unremarkable. It is very unlikely that this patient given his young age is experiencing acute coronary syndrome. I did offer the patient x-ray of the chest, laboratory studies and urinalysis, which he declined. The patient is awake, alert, oriented, sober of sound mind, and exhibits decision-making capacity, and is free from distracting injury. He does not meet criteria for 1013 hold or involuntary confinement, and through shared decision-making, agreed to not obtain/some the aforementioned testing, as these will likely not be of any immediate diagnostic utility. Critical care attestation.: If time is entered above; I have spent that time in minutes in the direct care of this critically ill patient, excluding procedure time. ED Disposition Clinical Impression: History of anxiety, History of chest pain, Encounter for behavioral health screening Disposition: HOME / SELF CARE / HOMELESS Is pt being admited?: No Does the pt Need Aspirin: No Condition: Good Additional Instructions: Please continue current outpatient medications. Avoid consumption of Motrin, ibuprofen, Naprosyn, Aleve, alcohol, tobacco, heavy and spicy foods. Please follow-up with your outpatient psychiatrist within the next week. Please follow-up with an outpatient primary care doctor or software reverse engineer within the next 3 to 5 days. Please return to the emergency room right away with new pain, worsened pain, migration of pain, projectile vomiting, change in mental status, confusion, inability tolerate liquid feeds, new, worsened or different symptoms not present on the initial emergency room evaluation Referrals: [facility] [Outside] - 3-5 Days [facility] [Outside] - 3-5 Days [facility] [Provider Group] - 3-5 Days [facility] [Provider Group] - 3-5 Days
[2021-08-26 13:48] VITALS: BP 134/86
--- NOTE | 2021-08-27 13:40 | Electrocardiograph Report ---
[facility] Test Date: 2021-08-26 Test Time: 11:09:03 Pat Name: ELY HERNÁNDEZ Department: Room: Gender: M Shingle Inspector: EL : 1990 Requested By: ED DOC Order Number: [id number] Reading MD: Demetrius Abad Measurements Intervals [place] Rate: 92 P: 62 TX: 158 QRS: 105 QRSD: 99 T: 61 QT: 356 QTc: 441 Interpretive Statements Sinus rhythm Probable right ventricular hypertrophy Probable lateral infarct, old Compared to ECG 12/25/2020 13:37:28 Myocardial infarct finding now present Electronically Signed On 08-27-2021 13:39:32 EST by Demetrius Abad
== END 2021-08-26 13:52 | disposition home or self-care (01) ==
LOC: ED 10:58
DX: R07.9 Chest pain, unspecified (principal); Z86.59 Personal history of other mental and behavioral disorders; Z13.30 Encounter for screening examination for mental health and behavioral disorders, unspecified; Z88.8 Allergy status to other drugs, medicaments and biological substances
CPT/HCPCS: 93005; 93010; 99283

== ENCOUNTER 2022-03-18 07:19 | Emergency (ER) | payer MEDICAID ==
[2022-03-18 07:36] VITALS: BP 130/85
== END 2022-03-18 10:00 | disposition home or self-care (01) ==
LOC: ED 07:19
DX: R11.10 Vomiting, unspecified (principal); R07.89 Other chest pain; Z53.21 Procedure and treatment not carried out due to patient leaving prior to being seen by health care provider
CPT/HCPCS: 99283